=== PATIENT | female | born 1945 | race Caucasian/White ===

== ENCOUNTER 2022-08-02 13:21 | Observation (INO) | payer OTHER, MEDICARE ==
--- OUTSIDE RECORDS SUMMARY | 2022-08-02 13:26 | XMS REPORT | Continuity of Care Document ---
:1945 Author Organization [facility] t Address [address] [facility] [address] [place] [id number] Care Team Providers Name Role Phone Kevyn Severino Primary Care Physician Oleksandr Cardenas Attending Clinician Unavailable Ge Parks Attending Clinician Unavailable Najma Attending Clinician Unavailable Jp Whitney Attending Clinician Benoit Brown Attending Clinician [phone] Heidy Attending Clinician Unavailable Milad Schilling Attending Clinician Lab, Adc Fam Pob I Attending Clinician Unavailable Tiff Newsome Attending Clinician Eyad Parish MD Attending Clinician [phone] Physician, No Primary or Family Admitting Clinician UnavailGe Valadez Admitting Clinician Unavailable Najma Admitting Clinician Unavailable Heidy Admitting Clinician Unavailable Payers Payer Name Policy Type Policy Number Effective Date Expiration Date S ource MEDICARE B-TX: [id number] 2008 NOVITAS Dazo 00:00:00 [facility] [id number] 2021 OPTIONS (MEDICARE 00:00:00 SUPPLEMENT) EPISODE SOLUTIONS [id number] Problems Condition Condition Condition Status Onset Resolution Last Treating Co mments Source Name Details Category Date Date Treatment Clinician Date History of History of Problem Active A zalea total Total 5-05 [facility] arthroplas Arthroplas 00:00: di c ty of ty of 00 Sports right Right Medicin shoulder Shoulder e History of History of Problem Active A zalea total Total 3-31 [facility] arthroplas Arthroplas 00:00: di c ty of ty of 00 Sports right Right Medicin shoulder Shoulder e joint Joint Pain of Pain of Problem Active Katty right Right 1-16 [facility] shoulder Shoulder 00:00: dic joint Joint 00 Sports Medicin e Osteoarthr Osteoarthr Problem Active A zalea itis of itis of 4-06 [facility] right Right 00:00: dic glenohumer Glenohumer 00 Sp orts al joint al Joint Medici n e 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 A zalea oral oral 2-07 [facility] osteoarthr Osteoarthr 00:00: di c itis itis 00 Sports Medicin e 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 00:00: dic 00 Sports Medicin e 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 Osteoarthr 4-13 Or thope itis itis 00:00: dic 00 Sports Medicin e 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 00:00: dic of right of Right 00 Sports wrist Wrist Medicin e Knee joint Knee Joint Problem Active A zalea effusion Effusion 4-09 Orthop e 00:00: dic 00 Sports Medicin e Acute Acute Problem Active Katty postoperat Postoperat 2-12 Or thope david pain david Pain 00:00: dic 00 Sports Medicin e 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 2-12 Or thope knee joint Knee Joint 00:00: di c 00 Sports Medicin e Left knee Left knee Disease Active Uni vers pain pain 4-04 ity of 00:00: [place] [address] Medical Branch No known No known Disease [facility] problems problems of Medicin e Allergies, Adverse Reactions, Alerts Allergy Allergy Status Severity Reaction(s) Onset Inactive Treating Comm ents Source Name Type Date Date Clinician No Known DA Active [facility] Allergie 04-27 [place] [facility] 00:[facility] hydroxyz DA Active [facility] ine 4-13 Clear 00:00: [place] 00 [facility] hydroxyz DA Active MO restless [facility] ine legs 4-13 Clear 00:00: [place] 00 [facility] hydroxyz DA Active [facility] ine 03-07 [place] 00:00: Orthope 00 dic [facility]osp[facility] hydroxyz DA Active MO restless [facility] ine legs 08 [place] 00:00: Orthope 00 dic Hospita l CODEINE DRUG Active N/V Univers INGREDI 4-04 ity of 00:00: [place] [address] Medical Branch Codeine Propensi Active Nausea Univers ty to and/or 4-04 ity of adverse Vomiting 00:00: [place] reaction Medical s Branch Social History Social Habit Start Date Stop Date Quantity Comments Source Exposure to Yes [facility]-CoV-2 [place] [facility] (event) Branch History [facility] ge of Alcohol Std Medicine Drinks History [facility] of Alcohol Binge Medicine Sex Assigned At [place] [facility] Tobacco use and 2019-10-15 2019-10-15 Former user [facility] Raji helms of exposure 00:00:00 00:00:00 Medicine Alcohol intake 2019-10-15 2019-10-15 Current drinker [facility] 00:00:00 00:00:00 of alcohol Medicine (finding) History [facility] 2019-09-24 2019-09-24 4 [facility] ge of Alcohol Frequency 00:00:00 00:00:00 Medicin e Smoking Status Start Date Stop Date Source Former smoker 2019-10-15 00:00:00 2019-10-15 00:00:00 [facility] scooter of Medicine Never smoked tobacco [facility] Medications Ordered Filled Start Stop Current Ordering Indication Dosage Frequency Signature Comments Components Source Medication Medication Date Date Medication? Clinician (SIG) Name Name diclofenac Yes [id number] TAKE ONE Univers 75 mg EC 7-22 TABLET BY ity of tablet 00:00: MOUTH [place] 00 TWICE A Medical DAY WITH Branch FOOD Juan Manuel Zambrano No Juan Manuel Kumar ea Silver Silver 4-13 Silver [facility] tablet RX tablet RX 00:00: tablet RX dic by other MD by other 00 by other Sports MD Flores e fenofibrate fenofibrate No fenofibrat Katty nanocrystal nanocrystal 4-13 e O rthope lized 145 lized 145 00:00: nanocrysta dic mg tablet mg tablet 00 llized 145 Sports RX by other RX by other mg tablet Sandra PIERRE MD RX by e other MD Juan Manuel Zambrano No Juan Manuel Kumar ea Silver Silver 4-13 Silver [facility] tablet RX tablet RX 00:00: tablet RX dic by other MD by other MD 00 by other Sports MD Sandra espinoza fenofibrate fenofibrate No fenofibrat Katty nanocrystal nanocrystal 4-13 e O rthope lized 145 lized 145 00:00: nanocrysta dic mg tablet mg tablet 00 llized 145 Sports RX by other RX by other mg tablet Sandra PIERRE MD RX by e other MD Juan Manuel Zambrano No Juan Manuel Kumar ea Silver Silver 4-13 Silver [facility] tablet RX tablet RX 00:00: tablet RX dic by other MD by other MD 00 by other Sports MD Sandra espinoza fenofibrate fenofibrate No fenofibrat Katty nanocrystal nanocrystal 4-13 e O rthope lized 145 lized 145 00:00: nanocrysta dic mg tablet mg tablet 00 llized 145 Sports RX by other RX by other mg tablet Sandra PIERRE MD RX by e other MD Juan Manuel Zambrano No Juan Manuel Kumar ea Silver Silver 4-13 Silver [facility] tablet RX tablet RX 00:00: tablet RX dic by other MD by other 00 by other Sports MD Flores e fenofibrate fenofibrate No fenofibrat Katty nanocrystal nanocrystal 4-13 e O rthope lized 145 lized 145 00:00: nanocrysta dic mg tablet mg tablet 00 llized 145 Sports RX by other RX by other mg tablet Sandra PIERRE MD RX by e other MD daxa patevastaoli No atorvastat Katty n 40 mg n 40 mg 4-13 in 40 mg Ortho pe tablet RX tablet RX 00:00: tablet RX dic by other MD by other MD 00 by other Sports MD Sandra espinoza Centrum Centrum No Centrum Azal ea Silver Silver 4-13 Silver [facility] tablet RX tablet RX 00:00: tablet RX dic by other MD by other 00 by other Sports MD Sandra espinoza diclofenac diclofenac No diclofenac Katty sodium 75 sodium 75 4-13 sodium 75 Orthope mg mg 00:00: mg dic tablet,pepe tablet,pepe 00 tablet,del Sports yed release yed release ayed M edicin RX by other RX by other release RX e MD by other famotidine famotidine No famotidine Katty 20 mg 20 mg -13 20 mg Orth[facility] tablet RX tablet RX 00:00: tablet RX dic by other MD by other MD 00 by other Sports MD Sandra espinoza fenofibrate fenofibrate No fenofibrat Katty nanocrystal nanocrystal - e O rthope lized 145 lized 145 00:00: nanocrysta dic mg tablet mg tablet 00 llized 145 Sports RX by other RX by other mg tablet Sandra PIERRE MD RX by e other levothyroxi levothyroxi No levothyrox Katty ne 50 mcg ne 50 mcg -13 ine 50 mcg Orth[facility] tablet RX tablet RX 00:00: tablet RX dic by other MD by other 00 by other Sports MD Sandra espinoza metoprolol metoprolol No metoprolol Katty succinate succinate 4-13 succinate Orth[facility] ER 50 mg ER 50 mg 00:00: ER 50 mg d ic tablet,exte tablet,exte 00 tablet,ext Sports nded nded ended Medicin release 24 release 24 release 24 e hr RX by hr RX by hr RX by other MD josee tripp MD Premarin Premarin No Premarin A zalea 0.625 mg 0.625 mg 4-13 0.625 mg Ort hope tablet RX tablet RX 00:00: tablet RX dic by other MD by other 00 by other Sports MD Sandra espinoza triamterene triamterene No triamteren Katty 37.5 37.5 -13 e 37.5 Orthope mg-hydrochl mg-hydrochl 00:00: mg-hydroch dic orothiazide orothiazide 00 lorothiazi Sports 25 mg 25 mg de 25 mg Medicin capsule RX capsule RX capsule RX e by other MD by other MD by other MD Centrum Centrum No Centrum Azal ea Silver Silver 06-10 Silver [facility] tablet RX tablet RX 00:00: tablet RX dic by other MD by other 00 by other Sports MD Sandra espinoza fenofibrate fenofibrate No fenofibrat Katty nanocrystal nanocrystal 06-10 e O rthope lized 145 lized 145 00:00: nanocrysta dic mg tablet mg tablet 00 llized 145 Sports RX by other RX by other mg tablet Sandra PIERRE MD RX by e other diclofenac Yes [id number] TAKE ONE Univers 75 mg EC 6- 9100 TABLET BY ity of tablet 00:00: MOUTH 00 TWICE A Medical DAY WITH Branch FOOD diclofenac Yes [id number] TAKE ONE Univers 75 mg EC 6-03 9100 TABLET BY ity of tablet 00:00: MOUTH 00 TWICE A Medical DAY WITH Branch FOOD BYSTOLIC Yes Jose David MG TABS 07-06 College 00:00: of 00 Medicin e atorvastati Yes Jose David n (LIPITOR) 07-06 College 40 MG 00:00: of tablet Medicin e BYSTOLIC Yes [place] MG TABS 07-06 College 00:00: of 00 Medicin e atorvastati Yes Jose David n (LIPITOR) 07-06 College 40 MG 00:00: of tablet Medicin e BYSTOLIC Yes Jose David MG TABS 07-06 College 00:00: of 00 Medicin e atorvastati Yes Jose David n (LIPITOR) 07-06 College 40 MG 00:00: of tablet Medicin e lorazepam Yes Jose David (ATIVAN) 4-29 College 0.5 MG 00:00: of tablet 00 Medicin e lorazepam 2019-0 Yes [place] (ATIVAN) 4-29 College 0.5 MG 00:00: of tablet 00 Medicin e lorazepam 2019-0 Yes Jose David (ATIVAN) 4-29 College 0.5 MG 00:00: of tablet 00 Medicin e diclofenac 2019-0 Yes TAKE ONE Uni vers 75 mg EC 4-10 TABLET BY ity of tablet 00:00: MOUTH [place] 00 TWICE A Medical DAY WITH Branch FOOD diclofenac 2019-0 Yes [place] (VOLTAREN) 4-10 College 75 MG EC 00:00: of tablet 00 Medicin e amoxicillin 2019-0 Yes Jose David (AMOXIL) 4-10 College 500 mg 00:00: of capsule 00 Medicin e diclofenac 2019-0 Yes [place] (VOLTAREN) 4-10 College 75 MG EC 00:00: of tablet 00 Medicin e amoxicillin 2019-0 Yes [place] (AMOXIL) 4-10 College 500 mg 00:00: of capsule 00 Medicin e diclofenac 2019-0 Yes [place] (VOLTAREN) 4-10 College 75 MG EC 00:00: of tablet 00 Medicin e amoxicillin 2019-0 Yes Jose David (AMOXIL) 4-10 College 500 mg 00:00: of capsule 00 Medicin e diclofenac 2019-0 2021- No TAKE ONE Un gary 75 mg EC 4-10 - TABLET BY ity o f tablet 00:00: 00:00 MOUTH [place] 00 :00 TWICE A Medical DAY WITH Branch FOOD diazepam 2019-0 Yes Jose David (VALIUM) 5 4-09 College MG tablet 00:00: of 00 Medicin e diazepam 2019-0 Yes [place] (VALIUM) 5 4-09 College MG tablet 00:00: of 00 Medicin e diazepam 2019-0 Yes Jose David (VALIUM) 5 4-09 College MG tablet 00:00: of 00 Medicin e famotidine 2019-0 Yes Jose David (PEPCID) 20 3-27 College MG tablet 00:00: of 00 Medicin e eszopiclone 2019-0 Yes [place] (LUNESTA) 2 3-27 College MG TABS 00:00: of 00 Medicin e famotidine 2019-0 Yes [place] (PEPCID) 20 3-27 College MG tablet 00:00: of 00 Medicin e eszopiclone 2018- Yes [place] (LUNESTA) 2 3-27 College MG TABS 00:00: of 00 Medicin e famotidine 2019- Yes Jose David (PEPCID) 20 3-27 College MG tablet 00:00: of 00 Medicin e eszopiclone 2018- Yes [place] (LUNESTA) 2 3-27 College MG TABS 00:00: of 00 Medicin e tramadol Yes [place] (ULTRAM) 50 2-20 College MG tablet 00:00: of 00 Medicin e tramadol 2019 Yes Jose David (ULTRAM) 50 2-20 College MG tablet 00:00: of 00 Medicin e tramadol 2019- Yes [place] (ULTRAM) 50 2-20 College MG tablet 00:00: of 00 Medicin e lorazepam lorazepam 2017-02 No lorazepam Katty 0.5 mg 0.5 mg 2-18 0.5 mg [facility] tablet RX tablet RX 00:00: tablet RX dic by other MD by other 00 by other Sports MD Sandra Hernandez 2017-02 No Bystolic Katty mg tablet mg tablet 2-18 10 mg Orth ope RX by other RX by other 00:00: tablet RX dic MD PIERRE 00 by other Sports MD Sandra espinoza Fiber Fiber 2017-02 No Fiber Katty (calcium (calcium 2-18 (calcium [facility] polycarboph polycarboph 00:00: polycarbop dic il) 625 mg il) 625 mg 00 hil) 625 Sports tablet RX tablet RX mg tablet Medicin by other MD by other RX by e josee PIERRE Livalo 4 mg Livalo 4 mg 2017-02 No Livalo 4 Katty tablet RX tablet RX 2-18 mg tablet Orthope by other by josee PIERRE 00:00: RX by dic 00 other MD Tremayne espinoza lorazepam lorazepam 2017-02 No lorazepam Katty 0.5 mg 0.5 mg 2-18 0.5 mg Orth[facility] tablet RX tablet RX 00:00: tablet RX dic by other MD by josee PIERRE 00 by other Sports MD Sandra Hernandez 2017-02 No Bystolic Katty mg tablet mg tablet 2-18 10 mg Orth ope RX by other RX by other 00:00: tablet RX dic MD PIERRE 00 by other Sports MD Maddison Villalba 2017-02 No Fiber Katty (calcium (calcium 2-18 (calcium [facility] polycarboph polycarboph 00:00: polycarbop dic il) 625 mg il) 625 mg 00 hil) 625 Sports tablet RX tablet RX mg tablet Medicin by other MD by other RX by e other Livalo 4 mg Livalo 4 mg 2017-02 No Livalo 4 Katty tablet RX tablet RX 2-18 mg tablet Orthope by other MD by other 00:00: RX by dic 00 other MD Tremayne espinoza lorazepam lorazepam 2017-02 No lorazepam Katty 0.5 mg 0.5 mg 2-18 0.5 mg Orth[facility] tablet RX tablet RX 00:00: tablet RX dic by other MD by other 00 by other Sports MD Sandra espinoza 2017-02 No Bystolic Katty mg tablet mg tablet 2-18 10 mg Orth ope RX by other RX by other 00:00: tablet RX dic MD PIERRE 00 by other Sports MD Sandra espinoza Fiber Fiber 2017-02 No Fiber Katty (calcium (calcium 2-18 (calcium [facility] polycarboph polycarboph 00:00: polycarbop dic il) 625 mg il) 625 mg 00 hil) 625 Sports tablet RX tablet RX mg tablet Medicin by other MD by other RX by e other Livalo 4 mg Livalo 4 mg 2017-02 No Livalo 4 Katty tablet RX tablet RX 2-18 mg tablet Orthope by other MD by other 00:00: RX by dic 00 other MD Tremayne espinoza lorazepam lorazepam 2017-02 No lorazepam Katty 0.5 mg 0.5 mg 2-18 0.5 mg Orth[facility] tablet RX tablet RX 00:00: tablet RX dic by other MD by other 00 by other Sports MD Sandra espinoza 2017-02 No Bystolic Katty mg tablet mg tablet 2-18 10 mg Orth ope RX by other RX by other 00:00: tablet RX dic MD PIERRE 00 by other Sports MD Sandra espinoza Fiber Fiber 2017-02 No Fiber Katty (calcium (calcium 2-18 (calcium [facility] polycarboph polycarboph 00:00: polycarbop dic il) 625 mg il) 625 mg 00 hil) 625 Sports tablet RX tablet RX mg tablet Medicin by other MD by other RX by e josee PIERRE Livalo 4 mg Livalo 4 mg 2017-02 No Livalo 4 Katty tablet RX tablet RX 2-18 mg tablet Orthope by other MD by other 00:00: RX by dic 00 other MD Tremayne espinoza lorazepam lorazepam 2017-02 No lorazepam Katty 0.5 mg 0.5 mg 2-18 0.5 mg [facility] tablet RX tablet RX 00:00: tablet RX dic by other MD by other 00 by other Sports MD Sandra Hernandez 2017-02 No Bystolic Katty mg tablet mg tablet 2-18 10 mg Orth ope RX by other RX by other 00:00: tablet RX dic MD PIERRE 00 by other Sports MD Sandra espinoza Fiber Fiber 2017-02 No Fiber Katty (calcium (calcium 2-18 (calcium [facility] polycarboph polycarboph 00:00: polycarbop dic il) 625 mg il) 625 mg 00 hil) 625 Sports tablet RX tablet RX mg tablet Medicin by other MD by other MD RX by e other levothyroxi levothyroxi 2017-02 No levothyrox Katty ne 25 mcg ne 25 mcg 2-18 ine 25 mcg [facility] tablet RX tablet RX 00:00: tablet RX dic by other MD by other 00 by other Sports MD Sandra espinoza Livalo 4 mg Livalo 4 mg 2017-02 No Livalo 4 Katty tablet RX tablet RX 2-18 mg tablet Orthope by other MD by other MD 00:00: RX by dic 00 other MD Tremayne espinoza lorazepam lorazepam 2017-02 No lorazepam Katty 0.5 mg 0.5 mg 2-18 0.5 mg Orthope tablet RX tablet RX 00:00: tablet RX dic by other MD by other 00 by other Sports MD Sandra Hernandez 2017-02 No Bystolic Katty mg tablet mg tablet 2-18 10 mg Orth ope RX by other RX by other 00:00: tablet RX dic MD PIERRE 00 by other Sports MD Sandra espinoza Fiber Fiber 2017-02 No Fiber Katty (calcium (calcium 2-18 (calcium [facility] polycarboph polycarboph 00:00: polycarbop dic il) 625 mg il) 625 mg 00 hil) 625 Sports tablet RX tablet RX mg tablet Medicin by other MD by other RX by e other Livalo 4 mg Livalo 4 mg 2018- No Livalo 4 Katty tablet RX tablet RX 2-18 mg tablet Orthope by other MD by other 00:00: RX by dic 00 other Sports Medicin e lorazepam 1 lorazepam 1 No lorazepam Katty mg tablet mg tablet 1 mg Ortho pe tablet dic Sports Medicin e meloxicam meloxicam No meloxicam Katty 15 mg 15 mg 15 mg Orthope tablet tablet tablet dic Sports Medicin e metoprolol metoprolol No metoprolol Katty succinate succinate succinate Orthope ER 50 mg ER 50 mg ER 50 mg dic tablet,exte tablet,exte tablet,ext Sports nded nded ended Medicin release 24 release 24 release 24 e hr RX by hr RX by hr RX by other MD josee tripp MD montelukast montelukast No montelukas Katty 10 mg 10 mg t 10 mg Orthope tablet tablet tablet dic Sports Medicin e prednisone prednisone No prednisone Katty 10 mg 10 mg 10 mg Orth[facility] tablet tablet tablet dic Sports Medicin e Premarin Premarin No Premarin Aza dharmesh 0.625 mg 0.625 mg 0.625 mg Ort hope tablet RX tablet RX tablet RX dic by other MD by other MD by other Sports MD Medicin e rosuvastati rosuvastati No rosuvastat Katty n 10 mg n 10 mg in 10 mg Ortho pe tablet tablet tablet dic Sports Medicin e tramadol tramadol No tramadol Aza dharmesh 37.5 37.5 37.5 Orthope mg-acetamin mg-acetamin mg-acetami dic ophen 325 ophen 325 nophen 325 Sports mg tablet mg tablet mg tablet Medicin Take 1 Take 1 Take 1 e tablet tablet tablet every 4-6 every 4-6 every 4-6 hours by hours by hours by oral route oral route oral route as needed. as needed. as needed. tramadol 50 tramadol 50 No tramadol Katty mg tablet mg tablet 50 mg Orth ope tablet dic Sports Medicin e triamterene triamterene No triamteren Katty 37.5 37.5 e 37.5 Orthope mg-hydrochl mg-hydrochl mg-hydroch dic orothiazide orothiazide lorothiazi Sports 25 mg 25 mg de 25 mg Medicin capsule RX capsule RX capsule RX e by other MD by other MD by other MD amoxicillin amoxicillin No amoxicilli Katty 500 mg 500 mg n 500 mg Orth[facility] capsule capsule capsule dic Sports Medicin e aspirin 81 aspirin 81 No aspirin 81 Katty mg chewable mg chewable mg O rthope tablet one tablet one chewable dic tablet by tablet by tablet one Sports mouth twice mouth twice tablet by Medicin a day for 4 a day for 4 mouth e weeks after weeks after twice a surgery surgery day for 4 weeks after surgery atorvastati atorvastati No atorvastat Katty n 40 mg n 40 mg in 40 mg Ortho pe tablet RX tablet RX tablet RX dic by other MD by other MD by other Sports MD Medicin e Augmentin Augmentin No 1 Q12H Augmentin Katty 500 mg-125 500 mg-125 500 mg-125 Orthope mg tablet mg tablet mg tablet dic Take 1 Take 1 Take 1 Sports tablet tablet tablet Medicin every 12 every 12 every 12 e hours by hours by hours by oral route oral route oral route as as as directed. directed. directed. azithromyci azithromyci No azithromyc Katty n 250 mg n 250 mg in 250 mg Or thope tablet tablet tablet dic Sports Medicin e celecoxib celecoxib No celecoxib Katty 200 mg 200 mg 200 mg Orth[facility] capsule capsule capsule dic Take one Take one Take one Spo rts caplet by caplet by caplet by Medicin mouth every mouth every mouth e 12 hours 12 hours every 12 for one for one hours for month. (For month. (For one month. after after (For after surgery use surgery use surgery only) only) use only) cephalexin cephalexin No cephalexin Katty 500 mg 500 mg 500 mg [facility] capsule capsule capsule dic Sports Medicin e diclofenac diclofenac No diclofenac Katty sodium 75 sodium 75 sodium 75 [facility] mg mg mg dic tablet,pepe tablet,peep tablet,del Sports yed release yed release ayed M edicin RX by other RX by other release RX e MD by other MD ezetimibe ezetimibe No ezetimibe Katty 10 mg 10 mg 10 mg [facility] tablet tablet tablet dic Sports Medicin e famotidine famotidine No famotidine Katty 20 mg 20 mg 20 mg [facility] tablet RX tablet RX tablet RX dic by other MD by other MD by other Sports MD Sandra espinoza hydrocodone hydrocodone No hydrocodon Katty 10 10 e 10 [facility] mg-acetamin mg-acetamin mg-acetami dic ophen 325 ophen 325 nophen 325 Sports mg tablet mg tablet mg tablet Medicin Take 1 Take 1 Take 1 e tablet tablet tablet every 6 every 6 every 6 hours by hours by hours by oral route oral route oral route as needed as needed as needed for 7 days. for 7 days. for 7 days. levothyroxi levothyroxi No levothyrox Katty ne 25 mcg ne 25 mcg ine 25 mcg [facility] tablet RX tablet RX tablet RX dic by other MD by other by other Sports MD Sandra espinoza levothyroxi levothyroxi No levothyrox Katty ne 50 mcg ne 50 mcg ine 50 mcg [facility] tablet RX tablet RX tablet RX dic by other MD by other by other Sports MD Sandra espinoza lorazepam 1 lorazepam 1 No lorazepam Katty mg tablet mg tablet 1 mg Ortho pe tablet dic Sports Medicin e meloxicam meloxicam No meloxicam Katty 15 mg 15 mg 15 mg [facility] tablet tablet tablet dic Sports Medicin e metoprolol metoprolol No metoprolol Katty succinate succinate succinate [facility] ER 50 mg ER 50 mg ER 50 mg dic tablet,exte tablet,exte tablet,ext Sports nded nded ended Medicin release 24 release 24 release 24 e hr RX by hr RX by hr RX by other other other montelukast montelukast No montelukas Katty 10 mg 10 mg t 10 mg [facility] tablet tablet tablet dic Sports Medicin e prednisone prednisone No prednisone Katty 10 mg 10 mg 10 mg [facility] tablet tablet tablet dic Sports Medicin e prednisone prednisone No prednisone Katty 20 mg 20 mg 20 mg [facility] tablet tablet tablet dic Sports Medicin e Premarin Premarin No Premarin Aza dharmesh 0.625 mg 0.625 mg 0.625 mg [facility] tablet RX tablet RX tablet RX dic by other MD by other MD by other Sports Medicigor espinoza rosuvastati rosuvastati No rosuvastat Katty n 10 mg n 10 mg in 10 mg Ortho pe tablet tablet tablet dic Sports Medicin e tramadol tramadol No tramadol Aza dharmesh 37.5 37.5 37.5 [facility] mg-acetamin mg-acetamin mg-acetami dic ophen 325 ophen 325 nophen 325 Sports mg tablet mg tablet mg tablet Medicin Take 1 Take 1 Take 1 e tablet tablet tablet every 4-6 every 4-6 every 4-6 hours by hours by hours by oral route oral route oral route as needed. as needed. as needed. tramadol 50 tramadol 50 No tramadol Katty mg tablet mg tablet 50 mg Orth ope tablet dic Sports Medicin e triamterene triamterene No triamteren Katty 37.5 37.5 e 37.5 [facility] mg-hydrochl mg-hydrochl mg-hydroch dic orothiazide orothiazide lorothiazi Sports 25 mg 25 mg de 25 mg Medicin capsule RX capsule RX capsule RX e by other MD by other MD by other MD amoxicillin amoxicillin No amoxicilli Katty 500 mg 500 mg n 500 mg [facility] capsule capsule capsule dic Sports Medicin e aspirin 81 aspirin 81 No aspirin 81 Katty mg chewable mg chewable mg O rthope tablet one tablet one chewable dic tablet by tablet by tablet one Sports mouth twice mouth twice tablet by Medicin a day for 4 a day for 4 mouth e weeks after weeks after twice a surgery surgery day for 4 weeks after surgery atorvastati atorvastati No atorvastat Katty n 40 mg n 40 mg in 40 mg Ortho pe tablet RX tablet RX tablet RX dic by other MD by other MD by other Sports MD Medicin e Augmentin Augmentin No 1 Q12H Augmentin Katty 500 mg-125 500 mg-125 500 mg-125 [facility] mg tablet mg tablet mg tablet dic Take 1 Take 1 Take 1 Sports tablet tablet tablet Medicin every 12 every 12 every 12 e hours by hours by hours by oral route oral route oral route as as as directed. directed. directed. azithromyci azithromyci No azithromyc Katty n 250 mg n 250 mg in 250 mg Or thope tablet tablet tablet dic Sports Medicin e celecoxib celecoxib No celecoxib Katty 200 mg 200 mg 200 mg [facility] capsule capsule capsule dic Take one Take one Take one Spo rts caplet by caplet by caplet by Medicin mouth every mouth every mouth e 12 hours 12 hours every 12 for one for one hours for month. (For month. (For one month. after after (For after surgery use surgery use surgery only) only) use only) cephalexin cephalexin No cephalexin Katty 500 mg 500 mg 500 mg [facility] capsule capsule capsule dic Sports Medicin e diclofenac diclofenac No diclofenac Katty sodium 75 sodium 75 sodium 75 [facility] mg mg mg dic tablet,pepe tablet,pepe tablet,del Sports yed release yed release ayed M edicin RX by other RX by other release RX e MD by other MD ezetimibe ezetimibe No ezetimibe Katty 10 mg 10 mg 10 mg [facility] tablet tablet tablet dic Sports Medicin e famotidine famotidine No famotidine Katty 20 mg 20 mg 20 mg [facility] tablet RX tablet RX tablet RX dic by other MD by other MD by other Sports Medicigor espinoza hydrocodone hydrocodone No hydrocodon Katty 10 10 e 10 [facility] mg-acetamin mg-acetamin mg-acetami dic ophen 325 ophen 325 nophen 325 Sports mg tablet mg tablet mg tablet Medicin Take 1 Take 1 Take 1 e tablet tablet tablet every 6 every 6 every 6 hours by hours by hours by oral route oral route oral route as needed as needed as needed for 7 days. for 7 days. for 7 days. levothyroxi levothyroxi No levothyrox Katty ne 25 mcg ne 25 mcg ine 25 mcg [facility] tablet RX tablet RX tablet RX dic by other MD by other MD by other Sports Medicin e levothyroxi levothyroxi No levothyrox Katty ne 50 mcg ne 50 mcg ine 50 mcg [facility] tablet RX tablet RX tablet RX dic by other MD by other MD by other Sports Medicin e lorazepam 1 lorazepam 1 No lorazepam Katty mg tablet mg tablet 1 mg Orth[facility] pe tablet dic Sports Medicin e meloxicam meloxicam No meloxicam Katty 15 mg 15 mg 15 mg [facility] tablet tablet tablet dic Sports Medicin e metoprolol metoprolol No metoprolol Katty succinate succinate succinate [facility] ER 50 mg ER 50 mg ER 50 mg dic tablet,exte tablet,exte tablet,ext Sports nded nded ended Medicin release 24 release 24 release 24 e hr RX by hr RX by hr RX by other MD other other montelukast montelukast No montelukas Katty 10 mg 10 mg t 10 mg [facility] tablet tablet tablet dic Sports Medicin e prednisone prednisone No prednisone Katty 10 mg 10 mg 10 mg [facility] tablet tablet tablet dic Sports Medicin e prednisone prednisone No prednisone Katty 20 mg 20 mg 20 mg [facility] tablet tablet tablet dic Sports Medicin e Premarin Premarin No Premarin Aza dharmesh 0.625 mg 0.625 mg 0.625 mg Ort hope tablet RX tablet RX tablet RX dic by other MD by other MD by other Sports Medicin e rosuvastati rosuvastati No rosuvastat Katty n 10 mg n 10 mg in 10 mg Orth[facility] pe tablet tablet tablet dic Sports Medicin e tramadol tramadol No tramadol Aza dharmesh 37.5 37.5 37.5 [facility] mg-acetamin mg-acetamin mg-acetami dic ophen 325 ophen 325 nophen 325 Sports mg tablet mg tablet mg tablet Medicin Take 1 Take 1 Take 1 e tablet tablet tablet every 4-6 every 4-6 every 4-6 hours by hours by hours by oral route oral route oral route as needed. as needed. as needed. tramadol 50 tramadol 50 No tramadol Katty mg tablet mg tablet 50 mg Orth ope tablet dic Sports Medicin e triamterene triamterene No triamteren Katty 37.5 37.5 e 37.5 [facility] mg-hydrochl mg-hydrochl mg-hydroch dic orothiazide orothiazide lorothiazi Sports 25 mg 25 mg de 25 mg Medicin capsule RX capsule RX capsule RX e by other MD by other MD by other MD amoxicillin amoxicillin No amoxicilli Katty 500 mg 500 mg n 500 mg [facility] capsule capsule capsule dic Sports Medicin e aspirin 81 aspirin 81 No aspirin 81 Katty mg chewable mg chewable mg O r[facility]ope tablet one tablet one chewable dic tablet by tablet by tablet one Sports mouth twice mouth twice tablet by Medicin a day for 4 a day for 4 mouth e weeks after weeks after twice a surgery surgery day for 4 weeks after surgery atorvastati atorvastati No atorvastat Katty n 40 mg n 40 mg in 40 mg [facility] pe tablet RX tablet RX tablet RX dic by other MD by other MD by other Sports Medicin e Augmentin Augmentin No 1 Q12H Augmentin Katty 500 mg-125 500 mg-125 500 mg-125 [facility] mg tablet mg tablet mg tablet dic Take 1 Take 1 Take 1 Sports tablet tablet tablet Medicin every 12 every 12 every 12 e hours by hours by hours by oral route oral route oral route as as as directed. directed. directed. azithromyci azithromyci No azithromyc Katty n 250 mg n 250 mg in 250 mg Or thope tablet tablet tablet dic Sports Medicin e celecoxib celecoxib No celecoxib Katty 200 mg 200 mg 200 mg [facility] capsule capsule capsule dic Take one Take one Take one Spo rts caplet by caplet by caplet by Medicin mouth every mouth every mouth e 12 hours 12 hours every 12 for one for one hours for month. (For month. (For one month. after after (For after surgery use surgery use surgery only) only) use only) cephalexin cephalexin No cephalexin Katty 500 mg 500 mg 500 mg [facility] capsule capsule capsule dic Sports Medicin e diclofenac diclofenac No diclofenac Katty sodium 75 sodium 75 sodium 75 [facility] mg mg mg dic tablet,pepe tablet,pepe tablet,del Sports yed release yed release ayed M edicin RX by other RX by other release RX e MD by other MD ezetimibe ezetimibe No ezetimibe Katty 10 mg 10 mg 10 mg [facility] tablet tablet tablet dic Sports Medicin e famotidine famotidine No famotidine Katty 20 mg 20 mg 20 mg [facility] tablet RX tablet RX tablet RX dic by other MD by other MD by other Sports Medicin e hydrocodone hydrocodone No hydrocodon Katty 10 10 e 10 [facility] mg-acetamin mg-acetamin mg-acetami dic ophen 325 ophen 325 nophen 325 Sports mg tablet mg tablet mg tablet Medicin Take 1 Take 1 Take 1 e tablet tablet tablet every 6 every 6 every 6 hours by hours by hours by oral route oral route oral route as needed as needed as needed for 7 days. for 7 days. for 7 days. levothyroxi levothyroxi No levothyrox Katty ne 25 mcg ne 25 mcg ine 25 mcg [facility] tablet RX tablet RX tablet RX dic by other MD by other MD by other Sports Medicin e levothyroxi levothyroxi No levothyrox Katty ne 50 mcg ne 50 mcg ine 50 mcg [facility] tablet RX tablet RX tablet RX dic by other MD by other MD by other Sports Medicin e lorazepam 1 lorazepam 1 No lorazepam Katty mg tablet mg tablet 1 mg Orth[facility] pe tablet dic Sports Medicin e meloxicam meloxicam No meloxicam Katty 15 mg 15 mg 15 mg [facility] tablet tablet tablet dic Sports Medicin e metoprolol metoprolol No metoprolol Katty succinate succinate succinate [facility] ER 50 mg ER 50 mg ER 50 mg dic tablet,exte tablet,exte tablet,ext Sports nded nded ended Medicin release 24 release 24 release 24 e hr RX by hr RX by hr RX by other other other montelukast montelukast No montelukas Katty 10 mg 10 mg t 10 mg [facility] tablet tablet tablet dic Sports Medicin e prednisone prednisone No prednisone Katty 10 mg 10 mg 10 mg [facility] tablet tablet tablet dic Sports Medicin e prednisone prednisone No prednisone Katty 20 mg 20 mg 20 mg [facility] tablet tablet tablet dic Sports Medicin e Premarin Premarin No Premarin Aza dharmesh 0.625 mg 0.625 mg 0.625 mg Ort hope tablet RX tablet RX tablet RX dic by other MD by other MD by other Sports Medicin e rosuvastati rosuvastati No rosuvastat Katty n 10 mg n 10 mg in 10 mg Orth[facility] pe tablet tablet tablet dic Sports Medicin e tramadol tramadol No tramadol Aza dharmesh 37.5 37.5 37.5 [facility] mg-acetamin mg-acetamin mg-acetami dic ophen 325 ophen 325 nophen 325 Sports mg tablet mg tablet mg tablet Medicin Take 1 Take 1 Take 1 e tablet tablet tablet every 4-6 every 4-6 every 4-6 hours by hours by hours by oral route oral route oral route as needed. as needed. as needed. tramadol 50 tramadol 50 No tramadol Katty mg tablet mg tablet 50 mg Orth ope tablet dic Sports Medicin e triamterene triamterene No triamteren Katty 37.5 37.5 e 37.5 [facility] mg-hydrochl mg-hydrochl mg-hydroch dic orothiazide orothiazide lorothiazi Sports 25 mg 25 mg de 25 mg Medicin capsule RX capsule RX capsule RX e by other MD by other MD by other MD amoxicillin amoxicillin No amoxicilli Katty 500 mg 500 mg n 500 mg [facility] capsule capsule capsule dic Sports Medicin e aspirin 81 aspirin 81 No aspirin 81 Katty mg chewable mg chewable mg O r[facility]ope tablet one tablet one chewable dic tablet by tablet by tablet one Sports mouth twice mouth twice tablet by Medicin a day for 4 a day for 4 mouth e weeks after weeks after twice a surgery surgery day for 4 weeks after surgery atorvastati atorvastati No atorvastat Katty n 40 mg n 40 mg in 40 mg [facility] pe tablet RX tablet RX tablet RX dic by other MD by other by other Sports Medicigor espinoza celecoxib celecoxib No celecoxib Katty 200 mg 200 mg 200 mg [facility] capsule capsule capsule dic Take one Take one Take one Spo rts caplet by caplet by caplet by Medicin mouth every mouth every mouth e 12 hours 12 hours every 12 for one for one hours for month. (For month. (For one month. after after (For after surgery use surgery use surgery only) only) use only) cephalexin cephalexin No cephalexin Katty 500 mg 500 mg 500 mg [facility] capsule capsule capsule dic [facility] Medic[facility] e diclofenac diclofenac No diclofenac Katty sodium 75 sodium 75 sodium 75 [facility] mg mg mg dic tablet,pepe tablet,pepe tablet,del Sports yed release yed release ayed M edicin RX by other RX by other release RX e MD PIERRE by other ezetimibe ezetimibe No ezetimibe Katty 10 mg 10 mg 10 mg [facility] tablet tablet tablet dic Sports Medicin e famotidine famotidine No famotidine Katty 20 mg 20 mg 20 mg [facility] tablet RX tablet RX tablet RX dic by other MD by other by other Sports Medicigor espinoza levothyroxi levothyroxi No levothyrox Katty ne 25 mcg ne 25 mcg ine 25 mcg [facility] tablet RX tablet RX tablet RX dic by other MD by other by other Sports MD Sandra espinoza levothyroxi levothyroxi No levothyrox Katty ne 50 mcg ne 50 mcg ine 50 mcg [facility] tablet RX tablet RX tablet RX dic by other MD by other MD by other Sports Medicin e lorazepam 1 lorazepam 1 No lorazepam Katty mg tablet mg tablet 1 mg [facility] pe tablet dic Sports Medicin e meloxicam meloxicam No meloxicam Katty 15 mg 15 mg 15 mg [facility] tablet tablet tablet dic Sports Medicin e metoprolol metoprolol No metoprolol Katty succinate succinate succinate [facility] ER 50 mg ER 50 mg ER 50 mg dic tablet,exte tablet,exte tablet,ext Sports nded nded ended Medicin release 24 release 24 release 24 e hr RX by hr RX by hr RX by other MD other other montelukast montelukast No montelukas Katty 10 mg 10 mg t 10 mg [facility] tablet tablet tablet dic Sports Medicin e prednisone prednisone No prednisone Katty 10 mg 10 mg 10 mg [facility] tablet tablet tablet dic Sports Medicin e Premarin Premarin No Premarin Aza dharmesh 0.625 mg 0.625 mg 0.625 mg Ort hope tablet RX tablet RX tablet RX dic by other MD by other MD by other Sports MD Medicin e rosuvastati rosuvastati No rosuvastat Katty n 10 mg n 10 mg in 10 mg [facility] pe tablet tablet tablet dic Sports Medicin e tramadol tramadol No tramadol Aza dharmesh 37.5 37.5 37.5 [facility] mg-acetamin mg-acetamin mg-acetami dic ophen 325 ophen 325 nophen 325 Sports mg tablet mg tablet mg tablet Medicin Take 1 Take 1 Take 1 e tablet tablet tablet every 4-6 every 4-6 every 4-6 hours by hours by hours by oral route oral route oral route as needed. as needed. as needed. tramadol 50 tramadol 50 No tramadol Katty mg tablet mg tablet 50 mg Orth ope tablet dic Sports Medicin e triamterene triamterene No triamteren Katty 37.5 37.5 e 37.5 [facility] mg-hydrochl mg-hydrochl mg-hydroch dic orothiazide orothiazide lorothiazi Sports 25 mg 25 mg de 25 mg Medicin capsule RX capsule RX capsule RX e by other MD by other MD by other MD aspirin 81 aspirin 81 No aspirin 81 Katty mg chewable mg chewable mg O r[facility]ope tablet one tablet one chewable dic tablet by tablet by tablet one Sports mouth twice mouth twice tablet by Medicin a day for 4 a day for 4 mouth e weeks after weeks after twice a surgery surgery day for 4 weeks after surgery celecoxib celecoxib No celecoxib Katty 200 mg 200 mg 200 mg [facility] capsule capsule capsule dic Take one Take one Take one Spo rts caplet by caplet by caplet by Medicin mouth every mouth every mouth e 12 hours 12 hours every 12 for one for one hours for month. (For month. (For one month. after after (For after surgery use surgery use surgery only) only) use only) amoxicillin amoxicillin No amoxicilli Katty 500 mg 500 mg n 500 mg [facility] capsule capsule capsule dic Sports Medicin e aspirin 81 aspirin 81 No aspirin 81 Katty mg chewable mg chewable mg O r[facility]ope tablet one tablet one chewable dic tablet by tablet by tablet one Sports mouth twice mouth twice tablet by Medicin a day for 4 a day for 4 mouth e weeks after weeks after twice a surgery surgery day for 4 weeks after surgery atorvastati atorvastati No atorvastat Katty n 40 mg n 40 mg in 40 mg Orth[facility] pe tablet RX tablet RX tablet RX dic by other MD by other MD by other Sports Medicin e celecoxib celecoxib No celecoxib Katty 200 mg 200 mg 200 mg [facility] capsule capsule capsule dic Take one Take one Take one Spo rts caplet by caplet by caplet by Medicin mouth every mouth every mouth e 12 hours 12 hours every 12 for one for one hours for month. (For month. (For one month. after after (For after surgery use surgery use surgery only) only) use only) cephalexin cephalexin No cephalexin Katty 500 mg 500 mg 500 mg [facility] capsule capsule capsule dic Sports Medicin e diclofenac diclofenac No diclofenac Katty sodium 75 sodium 75 sodium 75 [facility] mg mg mg dic tablet,pepe tablet,pepe tablet,del Sports yed release yed release ayed M edicin RX by other RX by other release RX e MD by other MD ezetimibe ezetimibe No ezetimibe Katty 10 mg 10 mg 10 mg [facility] tablet tablet tablet dic Sports Medicin e famotidine famotidine No famotidine Katty 20 mg 20 mg 20 mg [facility] tablet RX tablet RX tablet RX dic by other by other MD by other Sports Medicigor espinoza levothyroxi levothyroxi No levothyrox Katty ne 25 mcg ne 25 mcg ine 25 mcg [facility] tablet RX tablet RX tablet RX dic by other MD by other MD by other Sports Medicin olga levothyroxi levothyroxi No levothyrox Katty ne 50 mcg ne 50 mcg ine 50 mcg [facility] tablet RX tablet RX tablet RX dic by other MD by other MD by other Sports MD Sandra espinoza Procedures Procedure Date / Time Performing Clinician Source Performed XR, shoulder, 2 or more 2022-06-01 00:00:00 Stacy montana [facility] [id number] [id number]22-05-26 00:00:00 Katty [facility] Arthroplasty of Right Sports Med icine Shoulder XR, shoulder, 2 or more 2022-03-16 00:00:00 Stacy montana [facility], shoulder, w/o 2022-03-16 00:00:00 Katty Ort hopedi contrast Sports Medicine YAG CAPSULOTOMY - OD - 2019-10-04 17:01:09 Eyad Parish [facility] RIGHT EYE [facility] Medicine Plan of Care Planned Activity Planned Date Details Comments Source Future Scheduled Test TETANUS SHOT (ADULT) [facility] [code = TETANUS SHOT Medicin e (ADULT)] Future Scheduled Test MEDICARE AWV (Initial) [facility] [code = MEDICARE AWV Medicin e (Initial)] Future Scheduled Test FALL SCREEN [code = [facility] FALL SCREEN] Medicine Future Scheduled Test OSTEOPOROSIS SCREENING [facility] [code = OSTEOPOROSIS Medicin e SCREENING] Future Scheduled Test PNEUMOVAX >=65 (PPSV23) [facility] [code = PNEUMOVAX >=65 Medic ine (PPSV23)] Future Scheduled Test FLU VACCINE > 6 MONTHS [facility] [code = FLU VACCINE > 6 Medi cine MONTHS] Future Scheduled Test TETANUS SHOT (ADULT) [facility] [code = TETANUS SHOT Medicin e (ADULT)] Future Scheduled Test MEDICARE AWV (Initial) [facility] [code = MEDICARE AWV Medicin e (Initial)] Future Scheduled Test OSTEOPOROSIS SCREENING [facility] [code = OSTEOPOROSIS Medicin e SCREENING] Future Scheduled Test PNEUMOVAX >=65 (PPSV23) [facility] [code = PNEUMOVAX >=65 Medic ine (PPSV23)] Future Scheduled Test FLU VACCINE > 6 MONTHS [facility] [code = FLU VACCINE > 6 Medi cine MONTHS] Future Scheduled Test FALL SCREEN [code = [facility] FALL SCREEN] Medicine Future Scheduled Test TETANUS SHOT (ADULT) [facility] [code = TETANUS SHOT Medicin e (ADULT)] Future Scheduled Test ZOSTER VACCINE (1 of 2) [facility] [code = ZOSTER VACCINE Medic ine (1 of 2)] Future Scheduled Test MEDICARE AWV (Initial) [facility] [code = MEDICARE AWV Medicin e (Initial)] Future Scheduled Test OSTEOPOROSIS SCREENING [facility] [code = OSTEOPOROSIS Medicin e SCREENING] Future Scheduled Test PNEUMOVAX >=65 (PPSV23) [facility] [code = PNEUMOVAX >=65 Medic ine (PPSV23)] Future Scheduled Test FLU VACCINE > 6 MONTHS [facility] [code = FLU VACCINE > 6 Medi cine MONTHS] Future Scheduled Test FALL SCREEN [code = [facility] FALL SCREEN] Medicine Encounters Start End Encounter Admission Attending Care Care Encounter Source Date/Time Date/Time Type Type Clinicians Facility Department ID 2020-06-16 Inpatient JAE Cordero DAYS [id number] [facility] 14:21:00 Oleksandr [id number] [facility] 2022-07-06 2022-07-06 Ge Barajas [facility] [place] - [facility] Katty 00:00:00 00:00:00 Jina Parks MD: [id number] FOG_Ofc dic [facility] Spo [facility] [place] [address] , Ph. [phone] 2022-06-01 2022-06-01 Ge Barajas [facility] [place] Katty 00:00:00 00:00:00 Jina Parks MD: [id number] FOG_Ofc [place] [facility] [place] [address] , Ph. [phone] 2022-05-26 2022-05-27 Inpatient JAE Porter SURG [id number] [facility] 05:02:00 11:48:00 Ge Friedman [facility] 2022-05-26 2022-05-26 Ge Barajas [facility] [place] - [facility] Katty 00:00:00 00:00:00 Jina Parks MD: [id number] FOG_Surgery dic [facility] , [place], [place] [address] , Ph. [phone] 2022-05-11 2022-05-11 Outpatient FOG_Stocks_ AOSM AOSM [id number] Katty 00:00:00 00:00:00 Dino [id number] Orth [facility]pe [facility] Sports Medicin e 2022-05-11 2022-05-11 Outpatient FOG_Stocks_ AOSM AOSM [id number] Katty 00:00:00 00:00:00 Dino [id number] [facility] Sports Medicin e 2022-05-11 2022-05-11 Outpatient FOG_Stocks_ AOSM AOSM [id number] Katty 00:00:00 00:00:00 Dino [id number] Orth ope dic Sports Medicin e 2022-05-11 2022-05-11 Outpatient FOG_Stocks_ AOSM AOSM [id number] Katty 00:00:00 00:00:00 Dino [id number] Orth ope dic Sports Medicin e 2022-05-11 2022-05-11 Outpatient FOG_Stocks_ AOSM AOSM [id number] Katty 00:00:00 00:00:00 Dino [id number] Orth ope dic Sports Medicin e 2022-05-11 2022-05-11 Outpatient FOG_Stocks_ AOSM AOSM [id number] Katty 00:00:00 00:00:00 Dino [id number] Orth ope dic Sports Medicin e 2022-05-11 2022-05-11 Outpatient FOG_Stocks_ AOSM AOSM [id number] Katty 00:00:00 00:00:00 Dino [id number] Orth [facility] Sports Medicin e 2022-04-20 2022-04-20 Outpatient SUSIE Porter 3DAY [id number] [facility] 08:00:00 16:00:00 Ge [facility] [place] [facility] 2022-05-26 2022-04-20 Inpatient CORY Parks HCATO SURG [id number] [facility] 07:00:00 13:00:00 Ge 15 [facility] 2022-04-14 2022-04-14 Outpatient FOG_Stocks_ AOSM AOSM [id number] Katty 00:00:00 00:00:00 Dino [id number] Orth ope dic Sports Medicin e 2022-04-14 2022-04-14 Outpatient FOG_Stocks_ AOSM AOSM [id number] Katty 00:00:00 00:00:00 Dino [id number] Orth ope dic Sports Medicin e 2022-03-16 2022-03-16 Outpatient SUSIE PorterTO RADI [id number] [facility] 16:07:00 16:07:00 Ge Alcaraz [facility] 2022-03-16 2022-03-16 Ge Barajas [facility] [place] - Ortho Katty 00:00:00 00:00:00 Jina Parks MD: [id number] FOG_Ofc dic [facility] Sp[place]ts [place], [place] [address] , Ph. [phone] 2022-03-07 2022-03-07 Outpatient FOG_Stocks_ AOSM AOSM [id number] Katty 00:00:00 00:00:00 Dino [id number] Orth ope dic Sports Medicin e 2022-03-07 2022-03-07 Outpatient FOG_Stocks_ AOSM AOSM [id number] Katty 00:00:00 00:00:00 Dino [id number] Orth ope dic Sports Medicin e 2022-03-07 2022-03-07 Outpatient FOG_Stocks_ AOSM AOSM [id number] Katty 00:00:00 00:00:00 Dino [id number] Orth ope dic Sports Medicin e 2021-11-30 2021-11-30 Outpatient FOG_Stocks_ AOSM AOSM [id number] Katty 00:00:00 00:00:00 Dino [id number] Orth ope dic Sports Medicin e 2021-11-30 2021-11-30 Benoit Prado [place] [place] - Ortho [id number] Katty 00:00:00 00:00:00 Jina Brown MD: [id number] FOG_Ofc dic [facility] [place] [facility] [place] [address] , Ph. [phone] 2021-11-25 2021-11-25 Outpatient FOG_Stocks_ AOSM AOSM [id number] Katty 00:00:00 00:00:00 Dino [id number] Orth ope dic Sports Medicin e 2021-09-15 2021-09-15 [facility] [id number] Univers 00:00:00 00:00:00 [facility] [id number] it y of [place] [id number] Denys as HANNAH?BLEA [phone] Wy dical [address] OFFICE [facility] 2021-09-01 2021-09-01 Outpatient FOG_Stocks_ AOSM AOSM [id number] Katty 07:59:00 07:59:00 Dino [id number] Orth ope dic Sports Medicin e 2021-08-28 2021-08-28 Outpatient FOG_Stocks_ AOSM AOSM [id number] Katty 12:12:00 12:12:00 Dino [id number] Orth ope dic Sports Medicin e 2021-08-28 2021-08-28 Outpatient SLAVA Brown [id number] 00:00:00 00:00:00 Benoit Prado [id number] 2021-08-28 2021-08-28 Benoit Prado [place] [place] - Ortho [id number] Katty 00:00:00 00:00:00 Jina Brown MD: [id number] FOG_Ofc dic [facility] [place] [facility] [place] [place] [address] , Ph. [phone] 2021-08-14 2021-08-14 Outpatient FOG_Stocks_ AOSM AOSM [id number] Katty 01:25:00 01:25:00 Dino [id number] Orth ope dic Sports Medicin e 2021-08-14 2021-08-14 Outpatient FOG_Stocks_ AOSM AOSM [id number] Katty 01:25:00 01:25:00 Dino [id number] Orth ope dic Sports Medicin e 2021-08-14 2021-08-14 Outpatient FOG_Stocks_ AOSM AOSM [id number] Katty 01:25:00 01:25:00 Dino [id number] Orth ope dic Sports Medicin e 2021-07-29 2021-07-29 Outpatient FOG_Bennett AOSM AOSM [id number] Katty 03:03:00 03:03:00 _Ana [id number] Orth ope dic Sports Medicin e 2020-06-10 2020-06-10 Outpatient Cardenas, HCACL LABO [id number] [facility] 17:57:00 17:57:[address] [place] [address] 2020-05-29 2020-05-30 Outpatient nullFlavo MNA [id number] Memoria 19:15:00 04:59:59 r Neurology 00 l Crystal Richter 2020-05-29 2020-05-30 Outpatient nullFlavo MNA [id number] Memoria 19:15:00 04:59:59 r Neurology 00 l Crystal Richter 2020-05-29 2020-05-29 Outpatient GENEVIEVE Schilling [id number] 14:15:00 23:59:59 Milad 00 Alec 2020-05-29 2020-05-29 Outpatient MHIE MHIE [id number] Memoria 14:15:00 14:15:00 00 l Rober 2020-02-25 2020-02-25 Laboratory Lab, Adc Fam Pob I [facility] [id number]. [id number] Univers 16:56:02 17:16:02 Only Tiff Smith [facility] [id number] ity of [place] [id number] Denys as Lisa [phone] Wy dical nal [address] Office [facility] One 2020-02-25 2020-02-25 Laboratory Lab, Adc [facility] [id number] 16:56:02 17:16:02 Only Fam Pob I Health [id number] [place] [id number] Professio [phone] nal [address] One 2020-02-25 2020-02-25 Outpatient R [facility] [id number] Univers 17:00:00 17:00:00 ity [facility] 2019-10-15 2019-10-15 Office [place], BCM [id number] 09:30:17 09:40:17 Visit Eyad AMBULATOR [id number] Robi Y [id number] 2019-10-15 2019-10-15 Office [place], BCM [id number] [place] [address] 09:30:17 09:40:17 Visit Eyad AMBULATOR [id number] College Robi Y [id number] of [id number] Medi shilpi 300 e 2019-10-04 2019-10-04 Office [place], BCM [id number] 09:19:14 11:04:27 Visit Eyad AMBULATOR [id number] Robi Y [id number] 2019-10-04 2019-10-04 Office Мар[place], BCM [id number] [place] [address] 09:19:14 11:04:27 Visit Eyad AMBULATOR [id number] College Robi Y [id number] of [id number] Medi shilpi 300 e 2019-09-24 2019-09-24 Office [place], BCM [id number] 82 09:52:39 10:02:39 Visit Eyad AMBULATOR 350.1.13.21 Robi Y [id number] [id number] 300 2019-09-24 2019-09-24 Office Марина, BCM [id number] [place] [address] 09:52:39 10:02:39 Visit Eyad AMBULATOR 350.1.13.21 College Robi Y [id number] [facility] 300 e Results Test Description Test Time Test Comments Results Result Comments Source BASIC METABOLIC PANEL 2022-05-27 06:41:00 Test Item Value Reference Range Interpretation Comme nts SODIUM (test code = NA) 142 mmol/L 136-145 N POTASSIUM (test code = K) 3.8 mmol/L 3.5-5.1 N CHLORIDE (test code = CL) 106.0 mmol/L 98-107 N CARBON DIOXIDE (test code = 28.3 mmol/L 21-32 N CO2) GLUCOSE (test code = GLU) 140 mg/dL 70-110 H BLOOD UREA NITROGEN (test 25 mg/dL 7-18 H code = BUN) GLOMERULAR FILTRATION RATE 73.2 >60 T he Glomerular Filtration Rate (test code = GFR) is a calcu lated parameterbased on serum Creati nine, patient age and sex. GFR va luesless than 60 mL/min/1.73 squ are meters are indicative ofCh ronic Kidney Disease. Values less than 15 mL/min/1.73squa re meters indicate Kidney failure. The calculation for GFR is based on the CKD-EPI (20 21) calculation. This formulais race indifferent and is the robert mmended formula for GFRby the [facility] for Adults.The GFR will not calcul ate if the sex is unknown or if t hepatient's age is <18 years. CREATININE (test code = 0.82 mg/dL 0.55-1.30 N CREAT) CALCIUM (test code = CA) 8.3 mg/dL 8.2-10.1 N CBC W/AUTO [id number] 06:24:00 Test Item Value Reference Range Interpretation Comments WHITE BLOOD CELL (test code = 17.3 K/mm3 5.8-11.0 H WBC) RED BLOOD CELL (test code = RBC) 4.01 M/mm3 4.2-5.4 L HEMOGLOBIN (test code = HGB) 12.2 g/dL 12-16 N HEMATOCRIT (test code = HCT) 36.3 % 37-47 L MEAN CELL VOLUME (test code = 91 fL 80-98 N MCV) MEAN CELL HGB (test code = MCH) 30.4 pg 27-34 N MEAN CELL HGB CONCENTRATION (test 33.6 g/dL 30.8-34.1 N code = MCHC) RED CELL DISTRIBUTION WIDTH (test 12.9 % 11-16 N code = RDW) PLT (test code = PLT) 268 K/mm3 130-400 N MEAN PLATELET VOLUME (test code = 10.9 fL 8.9-12.1 N MPV) NEUTROPHIL % (test code = NT%) 73.0 % 45-70 H LYMPHOCYTE % (test code = LY%) 15.4 % 20-40 L MONOCYTE % (test code = MO%) 10.9 % 3-10 H EOSINOPHIL % (test code = EO%) 0.0 % 1-5 L BASOPHIL % (test code = BA%) 0.1 % 0.0-1.1 N NEUTROPHIL # (test code = NT#) 12.62 K/mm3 2.00-7.50 H LYMPHOCYTE # (test code = LY#) 2.67 K/mm3 1.50-4.00 N MONOCYTE # (test code = MO#) 1.89 K/mm3 0.2-0.8 H EOSINOPHIL # (test code = EO#) 0.00 K/mm3 0.04-0.4 L BASOPHIL # (test code = BA#) 0.02 K/mm3 0.02-0.10 N MANUAL DIFF REQUIRED (test code = NO MANUAL DIFF MDIFF) NUCLEATED RED BLOOD CELL (test 0 % 0-0 N code = NRBC) SPECIMEN COMMENT: POD #1COMPREHENSIVE METABOLIC [id number] 15:20:00 Test Item Value Reference Range Interpretation Comments SODIUM (test code = 141 mmol/L 136-145 N NA) POTASSIUM (test 4.1 mmol/L 3.5-5.1 N code = K) CHLORIDE (test code 101.0 mmol/L 98-107 N = CL) CARBON DIOXIDE 31.4 mmol/L 21-32 N (test code = CO2) GLUCOSE (test code 132 mg/dL 70-110 H = GLU) BLOOD UREA NITROGEN 32 mg/dL 7-18 H (test code = BUN) GLOMERULAR 66.3 >60 The Glomerular FILTRATION RATE Filtration R ate is a (test code = GFR) calculated parameterbased on serum Creatinin e, patient age and sex. GFR valuesless than 60 mL/min/1.73 squ are meters are jess cative ofChronic Kidne y Disease. Values less than 15 mL/min/1.73squa re meters indicate Kidney failure. The calculation for GFR is based on the CK D-EPI (2020) calculat ion. This formulais race indifferent and is the recommended for dionna for GFRby the [facility] at[facility] Foundati on for Adults.The GFR will not calculate i f the sex is unknown or if thepatient's ag e is <18 years. CREATININE (test 0.89 mg/dL 0.55-1.30 N code = CREAT) TOTAL PROTEIN (test 6.9 g/dL 6.4-8.2 N code = PROT) ALBUMIN (test code 3.7 g/dL 3.4-5.0 N = ALB) GLOBULIN (test code 3.2 g/dL 2.2-4.2 N = GLOB) ALBUMIN/GLOBULIN 1.2 0.7-2.0 N RATIO (test code = A/G) CALCIUM (test code 9.3 mg/dL 8.2-10.1 N = CA) BILIRUBIN TOTAL 0.60 mg/dL 0.2-1.00 N (test code = BILT) SGOT/AST (test code 35.0 U/L 15-37 N = AST) SGPT/ALT (test code 64.0 U/L 12-78 N = ALT) ALKALINE 90 U/L 46-116 N PHOSPHATASE TOTAL (test code = ALKP) PROTHROMBIN [id number] 15:12:00 Test Item Value Reference Range Interpretation Comments PROTHROMBIN TIME 11.0 secs 9.7-12.5 N Please note new normal PATIENT (test code = range. PTP) INTERNATIONAL NORMAL 0.99 <2.0 RECOMME NDED THERAPEUTIC RATIO (test code = RANGE FOR ORAL INR) ANTICOAGULANTTR EATMENT: CONDITION INRPr ophylaxis of venous throm bosis in 2.0 - 3.0 high- risk medical or surg ical patientsTreatme nt of venous thrombos is 2.0 - 3.0Prevention o f embolism 2.0 - 3.0Prevention o f recurrent embol ism, or 3.0 - 4.5 patie nts with mechanical pros thetic intravascular v barr IS PATIENT ON ANTICOAGULANTS ? YLIST ANTICOAGULANT/ANTI PLT MEDICATION : AspirinHas Lab been notified if Patient is on Heparin Drip? NOTHROMBOPLASTIN TIME [id number] 15:12:00 Test Item Value Reference Range Interpretation Comments PTT ACTIVATED (test 25.0 secs 26.6-34.6 L Please n ote new code = APTT) normal range. IS PATIENT ON ANTICOAGULANTS ? YLIST ANTICOAGULANT/ANTI PLT MEDICATION : AspirinHas Lab been notified if Patient is on Heparin Drip? NOCBC W/AUTO DIFF 2022-04-20 14:58:00 Test Item Value Reference Range Interpretation Comments WHITE BLOOD CELL (test code = WBC) 14.1 K/mm3 5.8-11.0 H RED BLOOD CELL (test code = RBC) 4.80 M/mm3 4.2-5.4 N HEMOGLOBIN (test code = HGB) 14.6 g/dL 12-16 N HEMATOCRIT (test code = HCT) 43.0 % 37-47 N MEAN CELL VOLUME (test code = MCV) 90 fL 80-98 N MEAN CELL HGB (test code = MCH) 30.4 pg 27-34 N MEAN CELL HGB CONCENTRATION (test 34.0 g/dL 30.8-34.1 N code = MCHC) RED CELL DISTRIBUTION WIDTH (test 12.5 % 11-16 N code = RDW) PLT (test code = PLT) 343 K/mm3 130-400 N MEAN PLATELET VOLUME (test code = 10.7 fL 8.9-12.1 N MPV) NEUTROPHIL % (test code = NT%) 67.1 % 45-70 N LYMPHOCYTE % (test code = LY%) 24.2 % 20-40 N MONOCYTE % (test code = MO%) 6.4 % 3-10 N EOSINOPHIL % (test code = EO%) 1.1 % 1-5 N BASOPHIL % (test code = BA%) 0.6 % 0.0-1.1 N NEUTROPHIL # (test code = NT#) 9.44 K/mm3 2.00-7.50 H LYMPHOCYTE # (test code = LY#) 3.40 K/mm3 1.50-4.00 N MONOCYTE # (test code = MO#) 0.90 K/mm3 0.2-0.8 H EOSINOPHIL # (test code = EO#) 0.15 K/mm3 0.04-0.4 N BASOPHIL # (test code = BA#) 0.08 K/mm3 0.02-0.10 N MANUAL DIFF REQUIRED (test code = NO MANUAL DIFF MDIFF) NUCLEATED RED BLOOD CELL (test 0 % 0-0 N code = NRBC) - CT UP EXTREM W/O CONT [id number] 07:15:00 [facility] 1945 Sex: F Patient Name: JAI SHIN Unit No: [id number] EXAMS: CPT CODE: [id number] CT UP EXTREM W/[place] [address] CT OF THE RIGHT SHOULDER WITH SAGITTAL AND CORONAL RECONSTRUCTIONS DIAGNOSIS: There is severe arthritic change of the glenohumeral joint and avascular necrosis of the humeral head with posterior cortical erosion and flattening. Osteophytes are present. Full-thickness cartilage loss is noted. Large joint and bursal effusions are seen with loose bodies. COMMENT: COMPARISON: No prior exams available. Scans were performed with thin sections and reconstructions were obtained. CT radiation dose optimization is achieved for this examination by the use of a CT protocol in accordance with ACR practice standards and adherence to computer help desk specialist's recommendations. Degenerative changes are present as noted. There is severe atrophy of the supraspinatus muscle. at 0715 Reported and signed by: Carl Alexandre MD CC: Ge Parks MD Technologist: MARCUS CANCINO MRI CTDI: DLP: Trnscrpt: 03/17/2022 (0715) JosafatJCL [facility] NAME: JAI SHINGAL [address] PHYS: Ge Nova : 1945 AGE: 76 SEX: F [place], [place] [address] LOC: EspinozaRAD PHONE #: [phone] EXAM DATE: 03/16/2022 STATUS: DEP CLI FAX #: [phone] RAD #: D/C DT PAGE 1 Signed Report Patient Name: JAI SHIN Unit No: [id number] EXAMS: CPT CODE: [id number] CT UP EXTREM W/[place] [address] (Continued) Orig Print D/T: S: 03/17/2022 (0718) [facility] [address] PHYS: Ge Nova : 1945 AGE: 76 SEX: F [place] [address] LOC: EspinozaRAD PHONE #: [phone] EXAM DATE: 03/16/2022 STATUS: DEP CLI FAX #: [phone] RAD #: D/C DT PAGE 2 Signed ReportNovel Coronavirus 2019 [id number] 12:36:00 Test Item Value Reference Range Interpretation Comments Novel Coronavirus Negative Negative Positive r esults are 2019 Inhouse (test indicativ e of the presence code = COVNONPUI) ofSARS-CoV -2 RNA, clinical correlation wit h patient historyand othe r diagnostic info rmation is necessary to determinepatien t infection status. Positiv e results do not rule out bacterial infection or co -infection with other viru ses. Negative result s do not preclude SARS-C oV-2 infection andsh ould not be used as the melonie e basis for patient managementdecis ions. Negative result s must be combined with otherclinical observations, p atient history, and epidemiological information . Detection of SARS-CoV-2 RNA may be affe cted bysample collec tion methods, storag e conditions, and /or stageof infection. Belem l RNA mutations, vacc inations, antiviraltherap eutics, antibiotics, chemotherapeuti c orimmunosuppres josh drugs have not been e valuated for effectson d etection. Results are for the identification of SARS-CoV-2 RNA usingthe [employer] M2000 Sy stem under the FDA Emergen cy UseAuthorizatio n. The testing is perf ormed by personneltraine d in the procedures for the [employer] M2000 molecular diagnostic SARS-CoV-2 assa y in vitro. Novel Coronavirus 2018 [id number] 12:35:00 Test Item Value Reference Range Interpretation Comments Novel Coronavirus Negative Negative Positive r esults are 2019 Inhouse (test indicativ e of the presence code = COVNONPUI) ofSARS-CoV -2 RNA, clinical correlation wit h patient historyand othe r diagnostic info rmation is necessary to determinepatien t infection status. Positiv e results do not rule out bacterial infection or co -infection with other viru ses. Negative result s do not preclude SARS-C oV-2 infection andsh ould not be used as the melonie e basis for patient managementdecis ions. Negative result s must be combined with otherclinical observations, p atient history, and epidemiological information . Detection of SARS-CoV-2 RNA may be affe cted bysample collec tion methods, storag e conditions, and /or stageof infection. Belem l RNA mutations, vacc inations, antiviraltherap eutics, antibiotics, chemotherapeuti c orimmunosuppres josh drugs have not been e valuated for effectson d etection. Results are for the identification of SARS-CoV-2 RNA usingthe [employer] M2000 Sy stem under the FDA Emergen cy UseAuthorizatio n. The testing is perf ormed by personnelchyna d in the procedures for the [employer] M2000 molecular diagnostic SARS-CoV-2 assa y in vitro. YAG CAPSULOTOMY - OD - RIGHT [id number] 17:01:09Procedure note: Nd:YAG posterior capsulotomy was performed on the right eye. Parameters were: 22 Pulses 2.6 MJ There were no complications. One drop of alphagan was given, and I reviewed instructions re: care of the eye and activity with the patient. Patient has been instructed to call immediately if any increase in floaters, presence of flashes, decreased vision, or obscurations of visual field are noted in the postoperative periodUniversity of California, [facility] [id number] 16:15:00 Patient Name: JAI SHIN Unit No: [id number] EXAMS: CPT CODE: [id number] DUP VEIN [id number] EXAM: LEFT LOWER EXTREMITY VENOUS DOPPLER ULTRASOUND History: Pain and swelling Technique: High-resolution grayscale, color Doppler, and spectral analysis of the deep venous system of the left lower extremity was performed. Findings: There is normal compression and augmentation of the common andsuperficial femoral as well as the popliteal veins and tibioperoneal trunks. Normal flow identified.Large intramuscular hematoma within the gastrocnemius muscle bellies is present within the mid left calf which measures at least 10 x 7 cm. Impression: 1. No evidence of venous thrombosis in the left lower extremity. 2. Large intramuscular hematoma is present within the left calf. at 0475 Reported and signed by: Lacie Neri MD CC: Catracho Medel MD Technologist: ROGELIO DAMIAN RDMS, RVT Transcribed D/ (3251) JosafatGVG [facility] NAME: JAI SHIN [address] [facility] PHYS: Catracho Ma MD : 1945 AGE: 72 SEX: F [place] [address] LOC: Y.RAD PHONE #: [phone] EXAM DATE: 06/06/2018 STATUS: REG CLI FAX #: [phone] RAD #: D/C DT PAGE 1 Signed Report Patient Name: JAI SHIN Unit No: [id number] EXAMS: CPT CODE: [id number] DUP VEIN [id number] (Continued) Orig Print D/T: S: 06/06/2018 (7028) [facility] NAME: JAI SHIN [address] [facility] PHYS: Catracho Ma MD : 1945 AGE: 72 SEX: F [place] [address] LOC: Y.RAD PHONE #: [phone] EXAM DATE: 06/06/2018 STATUS: REG CLI FAX #: [phone] RAD #: D/C DT PAGE 2 Signed ReportBASIC METABOLIC [id number] 06:17:00 Test Item Value Reference Range Interpretation Comments SODIUM (test code = 139 mmol/L 136-145 N NA) POTASSIUM (test code = 4.3 mmol/L 3.5-5.1 N K) CHLORIDE (test code = 103.0 mmol/L 98-107 N CL) CARBON DIOXIDE (test 23.4 mmol/L 21-32 N code = CO2) GLUCOSE (test code = 163 mg/dL 70-110 H GLU) BLOOD UREA NITROGEN 19 mg/dL 7-18 H (test code = BUN) GLOMERULAR FILTRATION 56.8 >60 Unit o f measure: RATE (test code = GFR) mL/mi n/1.73 [id number] Range:Healthy Adults >90 mL/min/1.73 m2 For Chronic Kidney Disease: Stage II Mild Decrease i n GFR 60-90 Stage III Moderate Decrea se in GFR 30-59 St age IV Severe Decre ase in GFR 15-29 St age V Kidney Failur e <15 CREATININE (test code 0.96 mg/dL 0.55-1.30 N = CREAT) CALCIUM (test code = 8.5 mg/dL 8.2-10.1 N CA) HGB [id number] 05:50:00 Test Item Value Reference Range Interpretation Comments HEMOGLOBIN (test code = HGB) 12.1 g/dL 12-16 N HEMATOCRIT (test code = HCT) 35.9 % 37-47 L Notes Date/Time Note Provider Source 2022-05-27 10:47:00-00:00 [facility] ([facility]) Clinical Note REPORT#:[id number] REPORT STATUS: Signed DATE:05/27/22 TIME: 1047 PATIENT: JAI SHIN UNIT #: [id number] ROOM/BED: [address] : [birth year] AGE: 76 SEX: F ATTEND: Jarred Parks MD ADM AUTHOR: Sujata Altamirano MD * ALL edits or amendments must be made on the el [employer]/computer document * Clinical Note Note: History: RT SHOULDER PAIN S/P RT TSA PMH: HTN, GERD POD:1 MD who placed block: MARYURI Type of block: IS S/S Activity status: AT [facility] Pain: Physical Exam: VAS: 2 LOS: 1 Resp Quality: Side Effects: MOTOR MVMT AND STRENGTH INTACT TO RUE BLOCK FOLLOW UP. PAIN CONTROLLED WITH ORAL MEDS PT HOME TODAY. PT SMILING. SPOUSE AT BEDSIDE Agree with the findings and plan as documented b peggy Russo RN. Stacy Altamirano MD Anesthesiology Portions of this section wer e scribed by Delphine Russo on 05/27/22 at 1047 Electronically Signed by Sujata Altamirano MD o mingo 06/24/22 at 1331 RPT #:[id number] END OF REPORT 2022-05-27 08:49:00-00:00 [facility] ([facility]) Discharge Summary REPORT#:[id number] REPORT STATUS: Signed DATE:05/27/22 TIME: 0849 PATIENT: JAI SHIN UNIT #: [id number] ROOM/BED: [facility] : [facility] AGE: 76 SEX: F ATTEND: Jarred Parks MD ADM AUTHOR: Willis Lucas DO * ALL edits or amendments must be made on the [employer]/computer document * General Information Discharge date: 05/27/22 Discharge diagnosis: R GHJ OA Hospital course: Discharge Diagnosis: R GHJ OA Discharge: Home Pt Condition: Stable Activity: Ambulate with Assistance Diet as tolerated Sig Findings: uneventful course Treatment Rendered: R TSA Prescriptions: On chart Special Instructions: REMAIN IN SLING Follow- up appointment: 1 Week(s) Brief Hospital Course The patient underwent the above procedure on the ir admission date without complication. Postoperatively they were transfer red to the orthopedic patient care unit. They received 24h rs postoperative antibiotics. They were transitioned from IV to oral pain medications with good contr ol at discharge. They were placed in a sling and worked on elbow/wr ist ROM and ADLs with PT. Once patient met all criteria they were deemed approp riate for discharge. They had no other complications during the visit. Med Rec Med Rec Discharge meds: Continue taking these medications: TRIAMTERENE/HCTZ 37.5/25 MG (DYAZIDE 37.5/25 MG) 37.5 MG-25 MG CAP 1 CAPSULE ORAL DAILY. FAMOTIDINE (PEPCID) 20 MG TAB 20 MILLIGRAM ORAL EVERY 12 HOURS. DICLOFENAC SODIUM ER (VOLTAREN) 75 MG TAB.DR 75 MILLIGRAM ORAL EVERY 12 HOURS. MULTIVITAMIN/MIN/IRON/LUTEIN (CENTRUM SILVER ULT RA WOMEN) 1 EACH TAB 1 EACH ORAL DAILY. ASPIRIN EC (ECOTRIN) 81 MG TAB.EC 81 MILLIGRAM ORAL BEDTIME. METOPROLOL SUCC XL (TOPROL XL) 50 MG TAB.SA 50 MILLIGRAM ORAL DAILY. EZETIMIBE (ZETIA) 10 MG TAB 10 MILLIGRAM ORAL DAILY. MAGNESIUM OXIDE (MAGNESIUM OXIDE) 500 MG TAB 500 MILLIGRAM ORAL BEDTIME. [VITAMIN B12] ORAL DAILY. ACETAMINOPHEN (TYLENOL) 500 MG TAB 500 MILLIGRAM ORAL EVERY 6 HOURS. Instructions: FOR PAIN Discharge Instructions PCP )( Discharge to: Home/Self Care Discharge Instructions Additional Discharge Routines: Attending Follow- Up )( Diet: Regular )( Activity: REMAIN IN SLING Follow-up Appointments Attending Physician: Attending Physician: Ge Parks MD Electronically Signed by Willis Lucas DO on at 0851 RPT #:[id number] END OF REPORT 2022-05-27 08:47:00-00:00 [facility] ([facility]) Orthopaedic Progress Note REPORT#:[id number] REPORT STATUS: Signed DATE:05/27/22 TIME: 08 PATIENT: JAI SHIN UNIT #: [id number] ROOM/BED: [address] : [birth year] AGE: 76 SEX: F ATTEND: Jarred Parks MD ADM AUTHOR: Willis Lucas DO * ALL edits or amendments must be made on the [employer]/computer document * Subjective Comments: Subjective: Patient is alert, oriented, and resting comfortably. Tolerating PO intake well. Pain is tolerable. Denies CP or SOB. Denies Numb ness, tingling or weakness. Objective: R Shoulder- dressing is clean, dry, and intact. Arm in sling. Sensation intact to Axillary, radial, median, u lnar nerves Able to fire deltoid Intact motor function in radial, median, ulnar nerves Radial pulse palpable Laboratory Tests 05/27/22 0450: [Embedded Image Not Available] Vital Signs: Date Time Temp Pulse Resp B/P B/P Pulse O2 O2 F low FiO2 Mean Ox Delivery Rate 05/27 0751 Nasal 3 98 cannula 05/27 0705 36.2 71 14 114/68 83.5 98 Room air 05/27 0345 36.5 63 16 100/60 73.1 96 05/27 0145 94 Nasal 3 32 cannula 05/26 2210 36.2 76 16 126/69 88.2 95 Nasal cannula 05/26 2140 93 Nasal 3 32 cannula 05/26 2128 Nasal 3 cannula Assessment/ Plan: R TSA - Post op day #1 May discharge home when ready from orthopedic [facility] - Follow up in office with physician in 1 week(s). Prescription for pain control in chart. Electronically Signed by Willis Lucas DO on at 0848 RPT #:[id number] END OF REPORT 2022-05-26 09:43:00-00:00 [id number] [place] [address] PATIENT NAME: JAI SHIN ADMIT DATE: ACCOUNT NO: [id number] ROOM NO: [facility] AGE: 76 REPORT TYPE: OPERATIVE REPORT SEX: F ADMITTING PHYSICIAN:Ge Parks MD ATTENDING PHYSICIAN:Ge Parks MD OPERATION DATE: 05/26/2022 PREOPERATIVE DIAGNOSIS: Right shoulder osteoarth ritis. POSTOPERATIVE DIAGNOSES: 1. Right shoulder osteoarthritis. 2. Right shoulder partial biceps tendon tear. PROCEDURES: 1. Right shoulder examination under anesthesia. 2. Right shoulder total shoulder arthroplasty. 3. Right shoulder open biceps tenodesis. 4. Right shoulder open inferior capsular contrac ture release. SURGEON: Ge Parks M.D. ASSISTANTS: Rishabh Kemp M.D. and Willis richardson DO. ANESTHESIA: General. COMPLICATIONS: None. BLOOD LOSS: 100 mL. INDICATIONS FOR PROCEDURE: Ms. Shin is a 76-year- old female with end-stage osteoarthritis of her right glenohumeral joint, failing nonoperative treatment. Risks and benefits of total shoulder arthroplast y were discussed with her and she desired to proceed with surgery. PROCEDURE IN DETAIL: The patient was tenisha en to the operating room and placed on the operating room table in supine position wher e general anesthesia was administered. The patient wa s then positioned in modified beach chair position. Examination under anesthesia did not reveal any pathological laxity and shoulder just revealed stiff ness associated with disease. Next, the right upper extremity and shoulder girdle region prepped and draped in usual sterile fashion. Standard deltopectoral approach was made retracting the cephalic vein laterally. Conjoined tendon was identified and r etracted medially. Anterior humeral circumflex vessels were identifi ed and suture ligated with 0 Vicryl in interrupted fashion. Axillar y nerve was identified and protected throughout the case. Stay suture placed in subscapularis tendon and subscapularis tenotomy was performed along the anatomical neck of the humer us. Subscapularis release was performed releasing the superior, middle, and in ferior glenohumeral ligament, PATIENT NAME: JAI SHINGAL ACCOUNT #: [id number] taking care to protect the axillary nerv e and release of inferior glenohumeral ligament. There was an inferior capsular contrac ture present, so the inferior capsule was released off the glenoid onc e again protecting the axillary nerve. Proximal humerus was then dislocated. Supraspina tus, infraspinatus, and teres minor had some undersurface partial thickness te aring, but no full-thickness tears were identified. Biceps was flattened and partially torn, so the intraarticular portion of biceps was resected. B iceps was suture tenodesed to the pectoralis major tendon with 0 Vicryl in int errupted fashion. [place] osteophytes were then removed off the hu meral head. Humeral head osteotomy was performed along the anatomical neck of t he humerus. The humeral head was sized as a 40. A cup protector was placed proximally a nd retracted posteriorly. Centering hole was made in the glenoid. The queenie oid was then prepared for the DJO augmented glenoid system because the patient had anterior glenoid wear and a type D glenoid. A 5 mm augment was selected and cemented into place in the anterior defect after all reaming and preparatio n had been done. Proximal humerus was then dislocated. Cup protector was r emoved. Proximal humerus was then prepared for the DJO CS edge component and a size 1 nucleus with a 40-head was selected. Three #2 transosseous FiberWire dickey tures were placed through the stump of subscapularis tendon to the lesser tube rosity. Final humeral implant was impacted in place. Glenohumeral join t was reduced. There was 50% posterior translation possible with spontaneous re duction noted. Next, the subscapularis was then repaired using the transosseous FiberWire suture. Rotator interval was reapproximated with #2 FiberWire in interrupted [id number] fashion. Rotator interval and subscapularis were then ove rsewn with a #1 Vicryl in a continuous running fashion. There was 30 degrees external rotation present at the termination of this closure. Wound was irrig ated thoroughly. Deep tissue was reapproximated with 0 Vicryl in interrupted fashion. Subcutaneous tissue was reapproximated with 2-0 Vicryl in interrupte d fashion. Skin was reapproximated with 3-0 Monocryl in continuous r unning subcuticular fashion. Steri-Strips, sterile dressing, and sling were a pplied. The patient tolerated the procedure well and was transferred to the re covery room in satisfactory condition. The skilled assistance of Toshia Linag was necessary during this complex surgical procedure. He assisted with zuly ry aspect of the operation including, but not limited to, proper and safe p ositioning of the patient, obtaining adequate surgical exposure, manipulati on of surgical instruments, suture management, surgical knot tying, the cont inual process of hemostasis during the procedure itself in addition to surgical wound closure and removal of the patient from the operating table and returni ng the patient back to the [facility]. His assistance allowed me to pe rform the most sensitive and technical potions of this op eration using 2 hands, thus enhancing efficiency and patient safety. This would not be possible witho ut the help of a skilled driller's assistant familiar with the procedure and capabl e of safely performing the aforementioned tasks. Dictated By: Ge Parks MD Date Dictated: 05/26/2022 09:43:38 Date Transcribed: 05/26/2022 12:08:32 TBE/NAF PATIENT NAME: JAI SHIN ACCOUNT #: [id number] Receipt ID: [id number] Authenticated by Ge Parks MD On 023 06:48:13 AM at 0648 PATIENT NAME: JAI SHIN ACCOUNT #: [id number] 2022-04-20 14:03:00-00:00 [id number] [place] [address] PATIENT NAME: JAI SHIN ADMIT DATE: ACCOUNT NO: [id number] ROOM NO: AGE: 76 REPORT TYPE: ELECTROCARDIOGRAM SEX: F ADMITTING PHYSICIAN:Ge Parks MD ATTENDING PHYSICIAN:Ge Parks MD Order: [id number] Test Reason : PRE OP CLEARANCE HTN Test Date/Time Stamp: TueApr 20 2022 14:03:54 Blood Pressure : / mmHG Vent. Rate : 056 BPM Atrial Rate : 056 BPM P-R Int : 170 ms QRS Dur : 084 ms QT Int : 444 ms P-R-T Axes : 067 038 061 degree s QTc Int : 428 ms Sinus bradycardia Nonspecific ST and T wave abnormality Abnormal ECG When compared with ECG of 10-JUN-2020 15:08, Nonspecific T wave abnormality has repla braxton inverted T waves in Inferior leads Nonspecific T wave abnormality, improved in Ante rior leads Confirmed by PIPE RAJPUT MD ([id number]) on 04/25/2022 7:45:30 PM Referred By: Ge Parks Confirmed by:PIPE RAJPUT MD PATIENT NAME: JAI SHIN ACCOUNT #: [id number] 2020-06-16 12:06:00-00:00 [id number] [place] [address] PATIENT NAME: JAI SHIN ADMIT DATE: ACCOUNT NO: [id number] ROOM NO: AGE: 74 REPORT TYPE: OPERATIVE REPORT SEX: F ADMITTING PHYSICIAN: ATTENDING PHYSICIAN:Oleksandr Cardenas MD OPERATION DATE: 06/16/2020 OUTPAT[facility] PREOPERATIVE DIAGNOSES: 1. Bilateral carpal tunnel compression syndrome of right greater than left. 2. 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 POSTOPERATIVE DIAGNOSES: 1. Bilateral carpal tunnel compression syndrome of right greater than left. 2. 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 PROCEDURES PERFORMED: 1. Right endoscopic carpal tunnel release. 2. Right middle finger PIP joint steroid injecti on under mini C-arm control. 3. Left carpal tunnel corticosteroid injection. SURGEON: Oleksandr Cardenas MD STUDIO COUCH FRAME BUILDER: ANESTHESIA: IV Xylocaine block anesthesia, [facility]. EBL: 0 SPECIMEN: NONE INDICATION: A 74-year-old white female w ith bilateral carpal tunnel clinically and electrodiagnostically, r ight greater than left, for endoscopic carpal tunnel release, right and injection of the left with st eroid. The patient also has right middle finger degenera tive arthritis of the PIP joint with ulnar deviation for steroid injection. PROCEDURE IN DETAIL: After satisfactory IV Xyloc faisal block anesthesia, the right hand and arm were prep ped and draped in the usual orthopedic fashion. All dissection was performed under 2.5 power magnifi cation. Arm was exsanguinated with a David bandage and in flated to 250 mmHg, 75 mmHg prior to regional block anesthetic. PATIENT NAME: JAI SHIN ACCOUNT #: [id number] An endoscopic carpal tunnel release was performed on the right with a proximal portal 1 cm proximal and rad ial to the pisiform, a distal portal in line joining the abducted thumb and middle-ring finger comple x. Tissue was dissected down through skin and subcutaneous tissue. Forearm fa scia and palmar fascia were released. A [place] elevator was passed beneath th e transverse carpal ligament, followed by trocar and cannula system. The 30-de gree 4-mm arthroscope was inserted proximally. Distal ligament was identif ied, freed of synovium, released with a triangle knife and retrograde kn bill. Arthroscope was removed proximally, inserted distally, and proximal liga ment freed of synovium and released with a retrograde knife. There was comp lete release of ligament with retraction past the aperture of the cannula and good fatty infiltration. Trocar, cannula, and arthroscope was rem gwen. The release was probed and found to be complete. A 2% lidocaine, epinephrine, and Kenalog solution 3 mL was placed along the flexor tendinosis and skin clos ed with 4-0 nylon mattress sutures. At this time, the right middle finger PIP joint was inspected under mini fluoroscan C-arm for arthritis and a radial inje ction of 2% lidocaine, epinephrine, and Kenalog solution 2 mL was infil trated, bulky compression dressing was applied and a volar neutral splint was applied. Tourniquet was released after 30 minutes with good capillary re fill of the fingertips. The left carpal tunnel and flexor tendinosis was injected with 5 mL of 2% lidocaine, epinephrine, and Kenalog solution. Th e patient tolerated all procedures well and returned to recovery room in satisfactory condition. Dictated By: Oleksandr Cardenas MD WT: OP:LINDSAY/AIDA/ODILIA Conf#: [id number]/DID#: [id number] Authenticated and Edited by Oleksandr Cardenas MD On 06/18/20 1:53:39 PM at 1356 PATIENT NAME: JAI SHIN ACCOUNT #: [id number] 2020-06-10 15:08:00-00:00 [id number] [place] [address] PATIENT NAME: JAI SHIN ADMIT DATE: ACCOUNT NO: [id number] ROOM NO: AGE: 74 REPORT TYPE: ELECTROCARDIOGRAM SEX: F ADMITTING PHYSICIAN: ATTENDING PHYSICIAN:Oleksandr Cardenas MD Order: [id number] Test Reason : PRE SURGERY Test Date/Time Stamp: TueJun 10 2020 15:08:37 Blood Pressure : / mmHG Vent. Rate : 055 BPM Atrial Rate : 055 BPM P-R Int : 172 ms QRS Dur : 082 ms QT Int : 448 ms P-R-T Axes : 054 033 006 degree s QTc Int : 428 ms Sinus bradycardia Nonspecific ST and T wave abnormality Abnormal ECG No previous ECGs available Confirmed by PIPE RAJPUT MD ([id number]) on 06/12/2020 1:24:30 PM Referred By: Oleksadnr Cardenas Confirmed by:PIPE Moscoso MD Electronically Signed by Pipe Rajput MD on 05/29 07/18 at 1324 PATIENT NAME: JAI SHIN ACCOUNT #: [id number] 2018-03-31 16:37:00-00:00 [id number] [place] [address] PATIENT NAME: JAI SHIN ADMIT DATE: 03/27/18 ACCOUNT NO: [id number] ROOM NO: Y.510 AGE: 72 REPORT TYPE: DISCHARGE SUMMARY REPORT SEX: F ADMITTING PHYSICIAN:Catracho Medel MD ATTENDING PHYSICIAN:Catracho Medel MD ADMISSION DATE: 03/27/2018 DISCHARGE DATE: 03/28/2018 ADMITTING DIAGNOSIS: Degenerative joint disease, left knee. DISCHARGE DIAGNOSIS: Status post unicompartmenta l arthroplasty, medial compartment, left knee. OPERATIONS AND PROCEDURES: O n 03/27/2018, unicompartmental arthroplasty, medial compartment, left knee, by Dr. Catracho Medel. HOSPITAL COURSE: Above-liste d procedure under general anesthesia with 100 mL of blood loss, no complications . Mobilized with physical therapy, weightbearing as tolerated. Hemoglobin 12.1 on the first postoper ative day. DISCHARGE INSTRUCTIONS: Activity is weightbearin g as tolerated. DISCHARGE MEDICATIONS: Aspirin 81 mg twice daily for 4 weeks. DIET: Usual. FOLLOWUP PLANS: With Dr. Catracho Medel in 10 da ys. CONDITION: Stable. DISPOSITION: Discharged to home. Dictated By: Catracho Medel MD WT: DS:LINDSAY/TERRI/ODILIA Conf#: [id number]/DID#: [id number] Authenticated by Catracho Medel MD On 09:49:20 AM at 0949 PATIENT NAME: JAI SHIN ACCOUNT #: [id number] 2018-03-28 13:15:00-00:00 [facility] ([facility]) Clinical Note REPORT#:[id number] REPORT STATUS: Signed DATE:03/28/18 TIME: 1315 PATIENT: JAI SHIN UNIT #: [id number] ROOM/BED: [place]-A : 43 AGE: 72 SEX: F ATTEND: Arvind Medel MD ADM AUTHOR: Catracho Medel MD * ALL edits or amendments must be made on the [employer]/computer document * Clinical Note Note: POD #1 Feels good. Amb in kat. Min pain. PE: Last Documented: Result Date Time Pulse Ox 94 03/28 1135 B/P 138/66 03/28 1135 B/P Mean 95 03/28 1135 O2 Delivery Room air 03/28 113 Temp 98.6 03/28 1135 Pulse 55 03/28 1135 Resp 15 03/28 1135 O2 Flow Rate 3.594513 03/28 0740 FiO2 32 03/28 0018 Drsg D/I. Foot NVI. Laboratory Tests: 03/28 0314 Chemistry Sodium (136 - 145 mmol/L) 139 Potassium (3.5 - 5.1 mmol/L) 4.3 Chloride (98 - 107 mmol/L) 103.0 Carbon Dioxide (21 - 32 mmol/L) 23.4 BUN (7 - 18 mg/dL) 19 H Creatinine (0.55 - 1.30 mg/dL) 0.96 Glomerular Filtr Rate (>60) 56.8 Glucose (70 - 110 mg/dL) 163 H Calcium (8.2 - 10.1 mg/dL) 8.5 Hematology Hgb (12 - 16 g/dL) 12.1 Hct (37 - 47 %) 35.9 L Home at 1316 RPT #:[id number] END OF REPORT 2018-03-27 18:18:00-00:00 [id number] [place] [address] PATIENT NAME: JAI SHIN ADMIT DATE: 03/27/18 ACCOUNT NO: [id number] [facility]GE[facility] 72 REPORT TYPE: OPERATIVE REPORT SEX: F ADMITTING PHYSICIAN:Catracho Medel MD ATTENDING PHYSICIAN:Catracho Medel MD OPERATION DATE: 03/27/2018 PREOPERATIVE DIAGNOSES: 1. Degenerative joint disease, left knee. 2. Degenerative joint disease, right knee. POSTOPERATIVE DIAGNOSES: 1. Degenerative joint disease, left knee. 2. Degenerative joint disease, right knee. PROCEDURES: 1. Unicompartmental arthroplasty, medial compart ment, left knee. 2. Cortisone injection, right knee. SURGEON: Catracho Medel MD STUDIO COUCH FRAME BUILDER: Indra Abebe MED ADMIN/ARCHITECTURE DRAFTER ANESTHESIA: General anesthesia. ESTIMATED BLOOD LOSS: 100 mL. DRAINS: None. SPECIMENS: None. COMPLICATIONS: None. INDICATIONS FOR SURGERY: Left knee pain. Treatment options were discussed with the patient who voiced understanding of the options and the planned procedure. She signed surgical consent informing her of the risk of infection, damage to nerves or blood vessels with loss of fun ction, mechanical failure or loosening with need for revision surgery, blood clots poss ibly going to the lungs, possibly resulting in . These issues were d iscussed with the patient in the office prior to surgery. No warranty or guar antee as to the outcome was made. FINDINGS: Severe arthritis with eburnated bone i n the medial compartment with marginal osteophytes along the medial femoral co ndyle. ACL intact. Articular cartilage intact in the late ral compartment. 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 PATIENT NAME: JAI SHIN ACCOUNT #: Y [id number] IMPLANTS: Shiva [employer] size C femoral component, s ize 2 tibial component, 11 mm tibial polyethylene insert. PROCEDURE IN DETAIL: After the patient was prope rly identified and all of her questions were answered in the preoperative hold ing area prior to any administration of sedatives or anesthesia, the appropriate extremity was marked under the direction of the patient and w ith the patient's consent. The patient then received some sedation under the ca re of the anesthesia team, was brought to the operating room where a timeout wa s performed that included confirmation of the appropriately signed surgical con sent, the appropriate side was marked, the patient's identity was confirmed, it was con firmed that all necessary surgical instruments were available and had been appropriately sterilized and that all potentially necessa ry implants were also available. Each member of the surgical team introduced themselves including th eir role in the operative procedure. The timeout was initiated by the surgeon and led by the circulating nurse in the operating room. Following t he timeout, the surgical procedure was begun. A second timeout had been performed prior to the surgical timeout before induction of anesthesia along with the anesthesi a team. Cortisone injection was administered per the pat ient's right knee. The right knee was sterilely prepped using alcohol swabs. The right knee was then injected in a sterile manner via a medial subpatellar approach using an 18-gauge needle. An 80 mg of Depo-Medrol had been mixed w ith 4 mL of normal saline. It was confirmed that both components were sterile and the dates on the vials indicated that they had not . The injecti on was administered with a 1.5-inch length 18-gauge diameter needle. Intraa rticular placement of the injection was confirmed by t actile feel when the capsule was punctured and lack of resistance when the injection was per formed. A Band-Aid was placed over the site of the injection. The left leg was then prepped and draped sterile ly. A tourniquet was not used for left knee arthroplasty. A sterile to urniquet was available in the room for placement if necessary should any excessive blee ding be encountered. An anterior longitudinal incision extending from th e superomedial pole of the patella to the medial base of the tibial tubercle was carried through skin and subcutaneous tissues. Hemostasis was then obtain ed using electrocautery. The capsule was incised along the medial border of t he patella and hemostasis was again obtained with electrocautery. Care was tenisha en to protect the articular cartilage and the ACL during exposure of the med ial compartment. After the medial compartment was adequ ately exposed and hemostasis was obtained, the knee was carefully inspected to determine whether pro ceeding with unicompartmental arthroplasty of the medial c ompartment was appropriate or not. It was confirmed that the ACL was intact as recorded in the surgi loida findings. It was also confirmed that the articular cartilage in the la teral compartment and the visualized anterior horn of the lateral meniscus was intact. Chondromalacic changes in the patellofemoral compartment were n oted and recorded in the surgical findings in this operative report. Deci james was made to proceed with unicompartmental arthroplasty. The tibial cutting guide was placed on the leg. The distal arm was centered over the tibia and appropriate alignment was con firmed. The tibial cutting guide was positioned so that an 8 to 10 mm resection of the proximal tibia would be resected. A single long screw pin was used t o secure the cutting guide to the tibia. The reciprocating saw was the n used to carefully incise the lateral PATIENT NAME: JAI SHIN aspect of the medial tibial plateau along the ma rgin of the insertion of the anterior cruciate ligament, making the dissection of the tibial plateau as large as possible. Retractors were placed to c arefully protect the medial collateral ligament as the proximal tibial plateau was then resected using an oscillating saw. The proximal portion of the cutting guide w as then removed as the wafer was removed from the proximal tibial plateau. It was confirmed that a minimum of 8 mm of thickness was resected using the spacer blocks. When 8 to 10 mm had been resected, the tibial cutting guide was removed. It should be noted that a single screw pin was placed as proximal and medial as possible ____ to minimize the risk of fracture of the proximal tibia. Attention was then turned to resecting the dista l femur using the "cutting block" technique. The appropriate 8 or 10 mm thi ckness resection guide was placed with the knee in extension and retractors were carefully placed to protect the medial and poste rior structures as well as the wafer from the distal femoral resection was remove d and the extension gap was checked with the spacer blocks. The medial femoral condylar resection wa s finished as needed under direct visualization. The knee was then flexed a nd attention was turned to preparing the femur for the femoral implant. The femoral implant was sized using the femoral cutting guides until the guide when placed against the posterior femoral condyle was within 3 to 4 mm o f the superior portion of the resected medial femoral condyle, but no more, an d did not overhang medial and laterally. The appropriately sized cutting guide was then secured to the distal femur using 3 screw pins. The peg holes were then drilled in the distal femur. The posterior femoral condyle was then resected as was the chamfer cut. The femoral drill guide was then removed as were the resected pieces of bone from the femur. The medial meniscus was then excised under direct visualization. The femoral trial was placed and a trial reducti on was performed using spacer blocks. It was confirmed that the flexion and ex tension gaps were well balanced. Additional trimmin g of the distal femur was performed carefully under direct visualization as needed to achieve exact balance of the flexion and extension gaps. When the gaps were bhaskar braxton, attention was turned to preparing the proximal tibia. The proximal tibia was sized initially u sing the measuring device to determine the anterior-posterior dimension. The tibial wan ds were then used to size the medial and lateral dimension. The largest size i mplant that obtained cortical contact without significant overhang was chosen. The anterior-posterior relationship of the trial to the tibia w as marked and the tibial cutting guide was then placed and secured using a sing le short screw pin. The peg holes were then drilled under direct visualization. The tib ial cutting guide was then removed. Any sclerotic areas of bone wer e drilled using a short drill bit with a built-in stop to facilitate cement interdigita tion. The knee was then carefully irrigated as 1 batch of CMW ce ment mixed with 1 gm of vancomycin was mixed on the back table. The implants were place d in sealed bags in hot water to preheat the implants to improve cement leblanc t o the implant. A damp Ray-Tanika was placed in the posterior aspect of the knee a nd along the medial border to allow removal of cement from the posteri or compartment of the knee. The distal femur and proximal tibia wer e carefully cleaned of all blood and fat using pulse lavage and then were carefully dried using Ray-T ec. When the cement was slightly doughy, it was fing er packed into the proximal tibia and also placed on the undersurface of the tibial component, which was then pressed and subsequently impacted into place. Care was taken to hold the tibial implant flush with the tibia while a ny excess cement was removed from the posterior and PATIENT NAME: JAI SHINGAL ACCOUNT #: Y [id number] medial aspects of the knee joint. A similar proc edure was then performed for the femoral implant. The tibial polyethylene ins ert was then placed into the tibia and impacted into place. Any excess cement was again removed. The knee was taken through a range of motion and it was confirmed that the implants were stable and the flexion and extension gaps were w ell balanced. Periarticular block was then performed using 0.5% ropivacaine with epinephrine. The knee was then soaked wit h dilute Betadine for approximately 90 seconds. The knee was then carefully lavaged using pulsatile lavage. The capsule was repaired using #1 Vicryl. The subcutaneo us tissues were meticulously closed in layers using 0 and 2-0 Vicryl. The skin was clos ed using 3-0 nylon. Sterile bandages were then placed followed by co mpressive bandage that included 6-inch Claudio bandages from toes to thigh. POSTOPERATIVE PLAN: Weightbearing and range of m otion as tolerated. Dictated By: Catracho Medel MD WT: OP:LINDSAY/TERRI/NTS Conf#: [id number]/DID#: [id number] Authenticated by Catracho Medel MD On 11:22:30 AM at 1122 PATIENT NAME: JAI SHIN ACCOUNT #: Y [id number] 2018-03-27 13:09:00-00:00 [facility] ([facility]) Brief Op Note REPORT#:[id number] REPORT STATUS: Signed DATE:03/27/18 TIME: 1309 PATIENT: JAI SHIN UNIT #: [id number] ROOM/BED: [place] [id number] : 43 AGE: 72 SEX: F ATTEND: Arvind Medel MD ADM AUTHOR: Catracho Medel MD * ALL edits or amendments must be made on the [employer]/computer document * Op/Inv Proc Note - Brief Pre-procedure diagnosis: djd lt knee Post-procedure diagnosis: same as pre procedure dx Procedures performed: uka lt med Primary Surgeon: trang Senior [employer]oplesoft Developer(s): jose Anesthesia: general anesthesia Findings: djd Complications: none Estimated blood loss in ml's: 100cc Specimens removed/altered: none at 1310 RPT #:[id number] END OF REPORT
--- NOTE | 2022-08-02 13:42 | RAD REPORT ---
EXAM DESCRIPTION: CT - Head Brain Wo Cont - 08/02/2022 1:35 pm CLINICAL HISTORY: DIZZINESS Headache, hypertension COMPARISON: No comparisons TECHNIQUE: All CT scans are performed using dose optimization technique as appropriate and may inclu de automated exposure control or mA/KV adjustment according to patient size. FINDINGS: No intracranial hemorrhage, hydrocephalus or extra-axial fluid collection.Mild brain atrop hy.No areas of brain edema or evidence of midline shift. The paranasal sinuses and mastoids are clear. The calvarium is intact. IMPRESSION: No acute intracranial abnormality.
[2022-08-02] MEDS ORDERED: NA CHLORIDE 0.9% 1,000 ML ONE (13:46)
[2022-08-02] MEDS ORDERED: FAMOTIDINE 20 MG/2 ML VIAL IV ONE (13:46)
--- NOTE | 2022-08-02 13:52 | RAD REPORT ---
EXAM DESCRIPTION: RAD - Chest Single View - 08/02/2022 1:46 pm CLINICAL HISTORY: COUGH Chest pain. COMPARISON: Chest Pa And Lat (2 Views) dated 07/01/2021; CHEST PA AND LAT 2 VIEW dated 12/01/2009; CHES T PA AND LAT 2 VIEW dated 08/20/2005 FINDINGS: Portable technique limits examination quality. The lungs are grossly clear. The heart is normal in size. No displaced fractures. IMPRESSION: No acute intrathoracic process suspected.
[2022-08-02 14:10] LABS: Absolute Lymphocytes (CBC) 2.4 K/uL (0.7-4.9); Hematocrit 40.7 % (36.0-45.0); Lymphocytes % 29.8 % (15.3-44.8); MCV 89.6 fL (80-100); MPV 8.3 fL (7.6-11.3); RBC Red Blood Cell Count 4.54 M/uL (3.86-4.86)
[2022-08-02 14:35] LABS: Protime INR 0.93
[2022-08-02 14:41] LABS: Albumin 3.5 g/dL (3.4-5.0); Bilirubin Direct 0.1 mg/dL (0-0.2); Bilirubin Indirect, Calculated 0.5 mg/dL (0.2-0.8); Bilirubin Total 0.6 mg/dL (0.2-1.0); Magnesium 2.3 mg/dL (1.6-2.4); Potassium 3.8 mEq/L (3.5-5.1); Protein, Total 7.3 g/dL (6.4-8.2); Troponin High Sensitivity 4.9 pg/mL (<58.9)
[2022-08-02 14:44] LABS: Thyroid Stimulating Hormone 5.66 uIU/mL (0.358-3.740)
[2022-08-02 15:08] LABS: Specific Gravity 1.009 (1.005-1.030); Urine Bilirubin NEGATIVE (Negative); Urine Blood Negative (Negative); Urine Clarity Clear (Clear); Urine Color Colorless (Yellow); Urine Glucose NEGATIVE (Negative); Urine Protein NEGATIVE (Negative); Urine Urobilinogen Normal (Normal)
[2022-08-02] MEDS ORDERED: MECLIZINE HCL 12.5 MG TAB ONE (15:36)
[2022-08-02] MEDS ORDERED: ONDANSETRON 4 MG/2 ML VIAL ONE (15:36)
[2022-08-02] MEDS ORDERED: ASPIRIN EC 81 MG TAB PO ONE (15:36)
[2022-08-02] MEDS ORDERED: FOLIC ACID 5 MG/ML VIAL ONE (15:37)
--- NOTE | 2022-08-02 15:52 | RAD REPORT ---
EXAM DESCRIPTION: MRI - Brain Wo Cont - 08/02/2022 3:41 pm CLINICAL HISTORY: Dizziness;TIA Headache, drowsiness COMPARISON: Head Brain Wo Cont dated 08/02/2022 TECHNIQUE: Multi-sequence, multiplanar MR imaging of the brain was performed without contrast. FINDINGS: No intracranial hemorrhage, hydrocephalus or extra-axial fluid collections.Mild periventri cular chronic microvascular ischemic changes. No edema or shift of midline structures. No findings to suspect brain mass. DWI is negative for acute CVA. Midline structures are normally formed. Mastoid air cells and paranasal sinuses are clear. Upper cervical canal stenosis. IMPRESSION: No acute process identified. No acute CVA. Spinal canal stenosis noted in the upper cervical spine. This is incompletely assessed.
--- NOTE | 2022-08-02 16:11 | ER ---
Nurse's Notes [facility] [place] Name: Genevieve Wyatt Age: 76 yrs Sex: Female : 1945 Arrival Date: 08/02/2022 Time: 13:21 Bed 7 Private MD: Diagnosis: Benign paroxysmal vertigo, unspecified ear;Chest pain, unspecified;Essential (primary) hypertension Presentation: 08/02 13:24 Chief complaint: EMS states: DIZZINESS AND HTN SINCE LAST PM. Coronavirus screen: At bp this time, the client does not indicate any symptoms associated with coronavirus-19. Ebola Screen: No symptoms or risks identified at this time. Initial Sepsis Screen: Does the patient meet any 2 criteria? No. Patient's initial sepsis screen is negative. Does the patient have a suspected source of infection? No. Patient's initial sepsis screen is negative. Risk Assessment: Do you want to hurt yourself or someone else? Patient reports no desire to harm self or others. Onset of symptoms was August 01, 2022 at 21:00. Care prior to arrival: IV initiated. 20 GA, in the left antecubital area, Glucose check: 122. 13:24 Method Of Arrival: EMS: [facility] bp 13:24 Acuity: ELIZABETH 3 bp Triage Assessment: 13:25 General: Appears in no apparent distress. Behavior is cooperative, appropriate for age, bp anxious. Pain: Complains of pain in head. EENT: Reports SINUS PAIN. Neuro: Level of Consciousness is awake, alert, obeys commands, Oriented to Appropriate for age. Cardiovascular: Rhythm is sinus rhythm. Respiratory: No deficits noted. GI: No signs and/or symptoms were reported involving the gastrointestinal system. : No signs and/or symptoms were reported regarding the genitourinary system. Derm: No deficits noted. Musculoskeletal: No deficits noted. Historical: - Allergies: 13:25 No Known Allergies; bp - Home Meds: 13:25 famotidine 40 mg oral tablet daily [Active]; fenofibrate oral [Active]; Zetia 10 mg bp Oral tablet daily [Active]; Metoprolol Tartrate Oral [Active]; aspirin 81 mg Oral capsule daily [Active]; - PMHx: 13:25 Hypertensive disorder; Hypercholesterolemia; bp - Immunization history:: Adult Immunizations up to date. - Social history:: Smoking status: Patient reports the use of cigarette tobacco products. Screenin:34 [facility] ED Fall Risk Assessment (Adult) History of falling in the last 3 months, bp including since admission No falls in past 3 months (0 pts). Abuse screen: Denies threats or abuse. Denies injuries from another. Nutritional screening: No deficits noted. Tuberculosis screening: No symptoms or risk factors identified. Assessment: 13:34 General: SEE TRIAGE NOTE. bp 15:24 Reassessment: No changes from previously documented assessment. Patient is alert, bp oriented x 3, equal unlabored respirations, skin warm/dry/pink. 16:20 Reassessment: PT RETURNED FROM MRI. bp Vital Signs: 13:24 BP 178 / 88; Pulse 72; Resp 16; Temp 98; Pulse Ox 100% ; bp 14:00 BP 163 / 98; Pulse 57; Resp 16; Pulse Ox 98% ; ko1 15:22 BP 166 / 89; Pulse 64; Resp 16; Pulse Ox 97% ; bp 16:18 BP 158 / 73; Pulse 57; Resp 16; Pulse Ox 100% ; bp Shayna Coma Score: 15:39 Eye Response: spontaneous(4). Motor Response: obeys commands(6). Verbal Response: hany oriented(5). Total: 15. NIH Stroke Scale Scores: 15:30 NIHSS Score: 0 hany ED Course: 13:23 Patient arrived in ED. bp 13:24 Cruz Capellan MD is Attending Physician. hany 13:24 Triage completed. bp 13:30 Maintain EMS IV. Dressing intact. Good blood return noted. Site clean \T\ dry. Gauge \T\ bp site: 20 GA LEFT AC. 13:34 Arm band placed on. bp 13:34 Patient has correct armband on for positive identification. Bed in low position. Call bp light in reach. Side rails up X2. Adult w/ patient. 13:37 CT Head Brain wo Cont In Process Unspecified. EDMS 13:48 XRAY Chest (1 view) In Process Unspecified. EDMS 14:34 Sheila Molina, SHANTELLE is Primary Nurse. ko1 15:36 Brain Wo Cont In Process Unspecified. EDMS 15:54 US Carotid Artery Bilateral In Process Unspecified. EDMS 16:08 Paul Abbott is Hospitalizing Provider. hany 22:27 No provider procedures requiring assistance completed. jj7 22:28 Patient admitted, IV remains in place. j Administered Medications: 13:59 Drug: NS 0.9% IV 500 ml Route: IV; Rate: bolus; Site: left antecubital; bp 13:59 Drug: NS 0.9% IV 1000 ml Route: IV; Rate: 125 ml/hr; Site: left antecubital; bp 13:59 Drug: Famotidine IVP 20 mg Route: IVP; Site: left antecubital; bp 16:17 Drug: Aspirin PO Chewable Tablet 81 mg Route: PO; bp 16:18 Drug: Meclizine PO 25 mg Route: PO; bp 16:18 Drug: Ondansetron IVP 4 mg Route: IVP; Site: left antecubital; bp 16:18 Drug: foLIC Acid IVPB 1 mg Route: IVPB; Site: left antecubital; bp 16:35 Drug: Clopidogrel PO 75 mg Route: PO; bp Medication: 22:28 VIS not applicable for this client. j Outcome: 16:11 Decision to Hospitalize by Provider. hany 22:27 Admitted to Med/surg accompanied by tech, via wheelchair, room 230, [facility] CARLY RN 22:27 Condition: good 22:56 Patient left the ED. j NIH Stroke Scale - NIH Stroke Score Date: 08/02/2022 Time: 15:30 Total Score = 0 10. Dysarthria (speech clarity - read or repeat words) - 0(Normal) 11. Extinction and Inattention (visual/tactile/auditory/spatial/personal) - 0(No abnormality) 1a. Level of Consciousness (LOC) - 0(Alert) 1b. Level of Consciousness (LOC) (Month \T\ Age) - 0(Both) 1c. LOC Commands (Open \T\ Closes Eyes/Library Customer Service Clerk) - 0(Both) 2. Best Gaze (Lateral Gaze Paresis) - 0(Normal) 3. Visual Field Loss - 0(No visual loss) 4. Facial Palsy - 0(Normal) 5a. Left Arm: Motor (10-second hold) - 0(No drift) 5b. Right Arm: Motor (10-second hold) - 0(No drift) 6a. Left Leg: Motor (5-second hold - always test supine) - 0(No drift) 6b. Right Leg: Motor (5-second hold - always test supine) - 0(No drift) 7. Limb Ataxia (finger/nose \T\ heel/isidro - test with eyes open) - 0(Absent) 8. Sensory Loss (pinprick arms/legs/face) - 0(Normal) 9. Best Language: Aphasia (description/naming/reading) - 0(No aphasia) Initials: hany Signatures: Dispatcher [employer] EDCruz Pat MD MD cha Peltier, Brian, RN RN bp Sheila Molina RN RN ko1 Xiang Garcia RN RN [email or web address] Corrections: (The following items were deleted from the chart) 15:24 13:20 Maintain EMS IV. Dressing intact. Good blood return noted. Site clean \T\ bp dry. Gauge \T\ site: 20 GA LEFT AC. bp
--- NOTE | 2022-08-02 16:11 | EDPHYS ---
Physician Documentation [facility] [place] Name: Genevieve Wyatt Age: 76 yrs Sex: Female : 1945 Arrival Date: 08/02/2022 Time: 13:21 Bed 7 Private MD: ED Physician Cruz Capellan HPI: 08/02 15:28 This 76 yrs old Female presents to ER via EMS with complaints of Dizziness. hany 15:28 The patient presents with dizziness, generalized weakness. Onset: The symptoms/episode hany began/occurred 1 day(s) ago, at 00:00. Context: occurred at home, occurred while the patient was sleeping. Modifying factors: The symptoms are alleviated by nothing, the symptoms are aggravated by movement of head. Associated signs and symptoms: The patient has no apparent associated signs or symptoms. Severity of symptoms: At their worst the symptoms were mild moderate in the emergency department the symptoms have improved mildly. Patient's baseline: Neuro: alert and fully oriented. The patient has not experienced similar symptoms in the past. Historical: - Allergies: 13:25 No Known Allergies; bp - Home Meds: 13:25 famotidine 40 mg oral tablet daily [Active]; fenofibrate oral [Active]; Zetia 10 mg bp Oral tablet daily [Active]; Metoprolol Tartrate Oral [Active]; aspirin 81 mg Oral capsule daily [Active]; - PMHx: 13:25 Hypertensive disorder; Hypercholesterolemia; bp - Immunization history:: Adult Immunizations up to date. - Social history:: Smoking status: Patient reports the use of cigarette tobacco products. ROS: 15:30 Constitutional: Negative for fever, chills, and weight loss, Eyes: Negative for injury, hany pain, redness, and discharge, ENT: Negative for injury, pain, and discharge, Neck: Negative for injury, pain, and swelling, Respiratory: Negative for shortness of breath, cough, wheezing, and pleuritic chest pain, Abdomen/GI: Negative for abdominal pain, nausea, vomiting, diarrhea, and constipation, Back: Negative for injury and pain, : Negative for injury, bleeding, discharge, and swelling, MS/Extremity: Negative for injury and deformity, Skin: Negative for injury, rash, and discoloration, Psych: Negative for depression, anxiety, suicide ideation, homicidal ideation, and hallucinations, Allergy/Immunology: Negative for hives, rash, and allergies, Endocrine: Negative for neck swelling, polydipsia, polyuria, polyphagia, and marked weight changes, Hematologic/Lymphatic: Negative for swollen nodes, abnormal bleeding, and unusual bruising. 15:30 Cardiovascular: Positive for chest pain. 15:30 Neuro: Positive for dizziness. Exam: 15:30 Constitutional: This is a well developed, well nourished patient who is awake, alert, hany and in no acute distress. Head/Face: Normocephalic, atraumatic. Eyes: Pupils equal round and reactive to light, extra-ocular motions intact. Lids and lashes normal. Conjunctiva and sclera are non-icteric and not injected. Cornea within normal limits. Periorbital areas with no swelling, redness, or edema. ENT: Nares patent. No nasal discharge, no septal abnormalities noted. Tympanic membranes are normal and external auditory canals are clear. Oropharynx with no redness, swelling, or masses, exudates, or evidence of obstruction, uvula midline. Mucous membranes moist. Neck: Trachea midline, no thyromegaly or masses palpated, and no cervical lymphadenopathy. Supple, full range of motion without nuchal rigidity, or vertebral point tenderness. No Meningismus. Chest/axilla: Normal chest wall appearance and motion. Nontender with no deformity. No lesions are appreciated. Cardiovascular: Regular rate and rhythm with a normal S1 and S2. No gallops, murmurs, or rubs. Normal PMI, no JVD. No pulse deficits. Respiratory: Lungs have equal breath sounds bilaterally, clear to auscultation and percussion. No rales, rhonchi or wheezes noted. No increased work of breathing, no retractions or nasal flaring. Abdomen/GI: Soft, non-tender, with normal bowel sounds. No distension or tympany. No guarding or rebound. No evidence of tenderness throughout. Back: No spinal tenderness. No costovertebral tenderness. Full range of motion. Female : Normal external genitalia. Skin: Warm, dry with normal turgor. Normal color with no rashes, no lesions, and no evidence of cellulitis. MS/ Extremity: Pulses equal, no cyanosis. Neurovascular intact. Full, normal range of motion. Psych: Awake, alert, with orientation to person, place and time. Behavior, mood, and affect are within normal limits. 15:30 Neuro: Orientation: is normal, appropriate for stated age, no acute changes, Mentation: is normal, appropriate for stated age, no acute changes, Memory: is normal, appropriate for stated age, no acute changes, Cranial nerves: grossly normal, is grossly normal based on the patient's age, no acute changes, Cerebellar function: is grossly normal, is grossly normal based on the patient's age, no acute changes, Motor: is normal, is grossly normal based on the patient's age, no acute changes, moves all fours, strength is normal, Sensation: no obvious gross deficits, Gait: not tested. Deep tendon reflexes are 2+ (normal) in the bilateral brachioradialis, bicep, tricep and patellar and Achilles tendons, Babinski testing is normal, seizure activity, is not displayed by the patient. 15:47 ECG was reviewed by the Attending Physician. hany Vital Signs: 13:24 BP 178 / 88; Pulse 72; Resp 16; Temp 98; Pulse Ox 100% ; bp 14:00 BP 163 / 98; Pulse 57; Resp 16; Pulse Ox 98% ; ko1 15:22 BP 166 / 89; Pulse 64; Resp 16; Pulse Ox 97% ; bp 16:18 BP 158 / 73; Pulse 57; Resp 16; Pulse Ox 100% ; bp NIH Stroke Scale Scores: 15:30 NIHSS Score: 0 hany [place] Coma Score: 15:39 Eye Response: spontaneous(4). Motor Response: obeys commands(6). Verbal Response: hany oriented(5). Total: 15. MDM: 13:24 Patient medically screened. hany 15:39 Differential diagnosis: cluster headache, cerebral vascular accident, abnormal EKG, hany acute myocardial infarction, acute pericarditis, anxiety, chest wall pain, congestive heart failure Cholelithiasis gastritis, hiatal hernia, pancreatitis, peptic ulcer disease, pneumonia, pulmonary embolus, stable angina, unstable angina, hypertensive headache, hypoglycemia, hyponatremia, intracerebral hemorrhage, neoplasm, subarachnoid bleed, subdural hematoma, temporal arteritis, tension headache, traumatic injuries. HEART Score: History: Slightly Suspicious (0), ECG: Normal (0). Differential diagnosis: cardiac arrhythmia. The patient was given aspirin in the Emergency Department. CHEO Risk Score: 1 - patient's age is greater or equal to 65 years, 1 - Three or more CAD risk factors, [Family Hx], [HTN], [Elevated Cholesterol], 1- Known CAD, 1 - ASA use in past 7 days. Data reviewed: vital signs, nurses notes, lab test result(s), EKG, radiologic studies, CT scan, doppler, MRI, plain films. Consideration of Admission/Observation Escalation of care including admission/observation considered. I considered the following discharge prescriptions or medication management in the emergency department Medications were administered in the Emergency Department. See MAR. Independent interpretation of the following test(s) in the Emergency Department EKG: See my EKG interpretation above. Test considered but Not performed: CT: no cta head/neck. Historians other than the Patient: Family Member: son in law, . Care significantly affected by the following chronic conditions: Hypertension, Obesity, hypercholesterol. Counseling: I had a detailed discussion with the patient and/or guardian regarding: the historical points, exam findings, and any diagnostic results supporting the discharge/admit diagnosis, the presence of at least one elevated blood pressure reading (>120/80) during this emergency department visit, lab results, radiology results, the need for further work-up and treatment in the hospital. 08/02 13:26 Order name: Basic Metabolic Panel; Complete Time: 15:05 hany 08/02 13:26 Order name: CBC with Diff; Complete Time: 14:49 hany 08/02 13:26 Order name: LFT's; Complete Time: 15:05 hany 08/02 13:26 Order name: Magnesium; Complete Time: 15:05 hany 08/02 13:26 Order name: NT PRO-BNP; Complete Time: 15:05 08/02 13:26 Order name: PT-INR; Complete Time: 14:49 08/02 13:26 Order name: Troponin HS; Complete Time: 15:05 hany 08/02 13:26 Order name: TSH; Complete Time: 15:05 hany 08/02 13:26 Order name: Urinalysis w/ reflexes; Complete Time: 15:27 hany 08/02 13:26 Order name: Lipase; Complete Time: 15:05 hany 08/02 14:46 Order name: T4 Free; Complete Time: 15:05 EDMS 08/02 16:52 Order name: Troponin HS: NOW hany 08/02 17:20 Order name: Magnesium [facility]MI 08/02 17:20 Order name: Phosphorus EDMS 08/02 17:21 Order name: Urinalysis w/ reflexes EDMI 08/02 17:21 Order name: Basic Metabolic Panel [facility] 08/02 17:21 Order name: Basic Metabolic Panel [facility] 08/02 17:21 Order name: CBC with Automated Diff [facility]MI 08/02 17:21 Order name: CBC with Automated Diff [facility] 08/02 17:21 Order name: Lipid Profile [facility] 08/02 17:21 Order name: Lipid Profile [facility] 08/02 17:23 Order name: Troponin High Sensitivity [facility] 08/02 17:23 Order name: Troponin High Sensitivity [facility] 08/02 13:26 Order name: XRAY Chest (1 view); Complete Time: 14:49 [facility] 08/02 13:27 Order name: CT Head Brain wo Cont; Complete Time: 14:49 [facility] 08/02 15:03 Order name: US Carotid Artery Bilateral; Complete Time: 17:53 [facility] 08/02 15:36 Order name: Brain Wo Cont; Complete Time: 16:04 [facility] 08/02 16:33 Order name: Echo without Doppler (2D) [facility] 08/02 16:52 Order name: Echo w/ Doppler [facility] 08/02 13:26 Order name: EKG; Complete Time: 13:27 [facility] 08/02 17:20 Order name: CONS Physician Consult [facility] 08/02 17:20 Order name: Heart Healthy [facility] 08/02 13:26 Order name: Cardiac monitoring; Complete Time: 14:00 [facility] 08/02 13:26 Order name: EKG - Nurse/Tech; Complete Time: 14:11 [facility] 08/02 13:26 Order name: IV Saline Lock; Complete Time: 14:00 [facility] 08/02 13:26 Order name: Labs collected and sent; Complete Time: 14:00 [facility] 08/02 13:26 Order name: O2 Per Protocol; Complete Time: 13:35 [facility] 08/02 13:26 Order name: O2 Sat Monitoring; Complete Time: 13:35 [facility] EC:47 Rate is 58 beats/min. Rhythm is regular. QRS Newcomb is Normal. SD interval is normal. QRS hany interval is normal. QT interval is normal. No Q waves. T waves are Normal. T waves are Inverted in leads V1, V3, V4, V5, V6. ST Segment is depressed in leads II, III. Clinical impression: NSR w/ Non-specific ST/T Changes. Interpreted by me. Reviewed by me. Administered Medications: 13:59 Drug: NS 0.9% IV 500 ml Route: IV; Rate: bolus; Site: left antecubital; bp 13:59 Drug: NS 0.9% IV 1000 ml Route: IV; Rate: 125 ml/hr; Site: left antecubital; bp 13:59 Drug: Famotidine IVP 20 mg Route: IVP; Site: left antecubital; bp 16:17 Drug: Aspirin PO Chewable Tablet 81 mg Route: PO; bp 16:18 Drug: Meclizine PO 25 mg Route: PO; bp 16:18 Drug: Ondansetron IVP 4 mg Route: IVP; Site: left antecubital; bp 16:18 Drug: foLIC Acid IVPB 1 mg Route: IVPB; Site: left antecubital; bp 16:35 Drug: Clopidogrel PO 75 mg Route: PO; bp Disposition Summary: 08/02/22 16:11 Hospitalization Ordered Hospitalization Status: Observation hany Provider: Paul Abbott cha Condition: Fair hany Problem: new hany Symptoms: have improved hany Bed/Room Type: Standard hany Location: Telemetry/MedSurg (observation)(08/02/22 21:35) Room Assignment: 230(08/02/22 21:35) Diagnosis - Benign paroxysmal vertigo, unspecified ear hany - Chest pain, unspecified hany - Essential (primary) hypertension hany Forms: - Medication Reconciliation Form hany - SBAR form hany NIH Stroke Scale - NIH Stroke Score Date: 08/02/2022 Time: 15:30 Total Score = 0 10. Dysarthria (speech clarity - read or repeat words) - 0(Normal) 11. Extinction and Inattention (visual/tactile/auditory/spatial/personal) - 0(No abnormality) 1a. Level of Consciousness (LOC) - 0(Alert) 1b. Level of Consciousness (LOC) (Month \T\ Age) - 0(Both) 1c. LOC Commands (Open \T\ Closes Eyes/Pulp House Supervisor) - 0(Both) 2. Best Gaze (Lateral Gaze Paresis) - 0(Normal) 3. Visual Field Loss - 0(No visual loss) 4. Facial Palsy - 0(Normal) 5a. Left Arm: Motor (10-second hold) - 0(No drift) 5b. Right Arm: Motor (10-second hold) - 0(No drift) 6a. Left Leg: Motor (5-second hold - always test supine) - 0(No drift) 6b. Right Leg: Motor (5-second hold - always test supine) - 0(No drift) 7. Limb Ataxia (finger/nose \T\ heel/isidro - test with eyes open) - 0(Absent) 8. Sensory Loss (pinprick arms/legs/face) - 0(Normal) 9. Best Language: Aphasia (description/naming/reading) - 0(No aphasia) Initials: hany Signatures: Dispatcher [employer] EDMS Lara Roman RN RN mw Anderson, Corey, MD MD cha Peltier, Brian RN RN bp Corrections: (The following items were deleted from the chart) 15:36 15:04 MR STROKE PROTOCOL+MRI.RAD.BRZ ordered. EDMS EDMS 18:50 16:11 Telemetry/MedSurg (observation) hany mw 18:50 16:11 hany mw 21:35 18:50 [facility] ER HOLD mw mw 21:35 18:50 ERHOLD- mw mw
--- NOTE | 2022-08-02 16:16 | RAD REPORT ---
EXAM DESCRIPTION: - CP - 08/02/2022 3:53 pm CLINICAL HISTORY: DIZZINESS Headache, drowsiness COMPARISON: No comparisons TECHNIQUE: Real-time sonographic evaluation of both carotid systems was performed. Doppler interroga tion was performed with waveform tracing bilaterally. FINDINGS: Normal high resistance waveforms are noted in both external carotid arteries. The common c arotid arteries and internal carotid arteries show normal low resistance waveforms. Focal small hard plaque right carotid bulb. Peak systolic and end diastolic velocity values and the I CA/CCA ratios are in the non-hemodynamically significant range. Antegrade flow seen in both vertebral arteries. IMPRESSION: Focal small hard plaque right carotid bulb. No evidence of a hemodynamically significant stenosis.
[2022-08-02] MEDS ORDERED: CLOPIDOGREL 75 MG TABLET ONE (16:37)
[2022-08-02] MEDS ORDERED: TRAMADOL HCL 50 MG TAB PO PRN (17:13)
[2022-08-02] MEDS ORDERED: ACETAMINOPHEN 325 MG TABLET PO PRN (17:14)
[2022-08-02] MEDS ORDERED: ONDANSETRON 4 MG/2 ML VIAL IV PRN (17:18)
[2022-08-02] MEDS ORDERED: MECLIZINE HCL 12.5 MG TAB PO PRN (17:21)
--- NOTE | 2022-08-02 17:22 | P.HP ---
Certification for Inpatient Patient admitted to: Observation With expected LOS: <2 Midnights Patient will require the following post-hospital care: None Practitioner: I am a practitioner with admitting privileges, knowledge of patient current condition, hospital course, and medical plan of care. Services: Services provided to patient in accordance with Admission requirements found in Title 42 Section 412.3 of the Code of Federal Regulations Patient History Date of Service: 08/02/22 Reason for admission: Dizziness and Vertigo History of Present Illness: Patient is a 76-year-old female with a past medical history significant for GERD, hyperlipidemia, hypertension, who presents with complaint of dizziness and vertigo onset yesterday. Patient reported that anytime she changes position she starts to experience symptoms. Patient reported that on her way to the ER patient started having chest pain in the right chest area rated as 7/10 in s everity and described as sharp in quality. Patient reported associated signs and symptoms of headache.. Patient denies any other signs or symptoms. Symptoms are aggravated or relieved by nothing. Patient was brought to the hospital for medical evaluation. Allergies No Known Drug Allergies Allergy (Verified 08/03/22 06:20) NKDA Home Medications: Aspirin 1 tab PO DAILY 08/03/22 Diclofenac Sodium [Voltaren] 1 tab PO BID 08/03/22 Ezetimibe [Zetia*] 1 tab PO DAILY 08/03/22 Famotidine 1 tab PO BID 08/03/22 Magnesium Oxide [Magnesium] 1 tab PO DAILY 08/03/22 Metoprolol Succinate [Toprol Xl*] 1 tab PO DAILY 08/03/22 Multivit-Min/FA/Lycopen/Lutein [Centrum Silver Tablet] 1 tab PO DAILY 08/03/22 Triamterene/Hydrochlorothiazid [Triamterene-Hctz 37.5-25 mg Cp] 1 cap PO DAILY 08/03/22 - Past Medical/Surgical History -: HTN -: GERD -: HLD Past Surgical History: Reviewed- Non-Contributory - Family History Family History: Reviewed- Non-Contributory - Social History Smoking Status: Never smoker Alcohol use: Yes CD- Drugs: No Caffeine use: Yes Place of Residence: Home Review of Systems General: Unremarkable Eyes: Unremarkable ENT: Unremarkable Respiratory: Unremarkable Cardiovascular: Chest Pain Gastrointestinal: Unremarkable Genitourinary: Unremarkable Musculoskeletal: Unremarkable Integumentary: Unremarkable Neurological: Other (Dizziness, Vertigo, BLAS) Lymphatics: Unremarkable Physical Examination - Physical Exam General: Alert, In no apparent distress, Oriented x3, Cooperative HEENT: Atraumatic, PERRLA, Mucous membr. moist/pink, EOMI, Sclerae nonicteric Neck: Supple, 2+ carotid pulse no bruit, No LAD, Without JVD or thyroid abnormality Respiratory: Clear to auscultation bilaterally, Normal air movement Cardiovascular: No edema, Regular rate/rhythm, Normal S1 S2 Capillary refill: <2 Seconds Gastrointestinal: Normal bowel sounds, Soft and benign, No tenderness Musculoskeletal: No clubbing, No swelling, No tenderness Integumentary: No rashes, No significant lesion Neurological: Normal speech, Normal strength at 5/5 x4 extr, Normal tone, Normal affect Lymphatics: No axilla or inguinal lymphadenopathy - Studies Laboratory Data (last 24 hrs) 08/02/22 14:00: PT 10.2, INR 0.93 08/02/22 14:00: WBC 7.90, Hgb 13.5, Hct 40.7, Plt Count 287 08/02/22 14:00: Sodium 140, Potassium 3.8, BUN 29 H, Creatinine 1.07 H, Glucose 108 H, Magnesium 2.3, Total Bilirubin 0.6, AST 20, ALT 33, Alkaline Phosphatase 72, Lipase 48 Assessment and Plan - Plan --Vertigo\dizziness. MRI brain unremarkable for any acute intracranial abnormality. Carotid Doppler does not indicate any evidence of carotid artery stenosis. Neurology consulted. Patient placed on meclizine as needed. Will await further recommendations. -- Chest pain. Likely atypical. Serial troponins negative so far. Echocardiogram pending to assess cardiac structures and function. Cardiology consulted. Telemetry to monitor for any significant arrhythmia. We will await further recommendation from life scientists. --Hyperlipidemia. Continue home medications. --GERD. Continue home medication. --Hypertension. Poorly controlled. Continue home medication and hydralazine as needed --CKD 3B. Stable. We will continue to monitor renal functions. --Headache. Tylenol as needed. --DVT prophylaxis with Lovenox subQ. Discharge Plan: Home Plan to discharge in: 48 Hours - Advance Directives Does patient have a Living Will: No Does patient have a Durable POA for Healthcare: Yes - Code Status/Comfort Care Code Status Assessed: Yes Physician Review: Patient Assessed, Agree with Above Assessment and Plan Critical Care: No
[2022-08-02 21:12] LABS: Magnesium 2.2 mg/dL (1.6-2.4); Phosphorus 2.6 mg/dL (2.5-4.9)
[2022-08-03] VITALS: BMI 28.3
[2022-08-03 04:01] LABS: Absolute Lymphocytes (CBC) 3.7 K/uL (0.7-4.9); Lymphocytes % 41.4 % (15.3-44.8); MPV 8.3 fL (7.6-11.3); RBC Red Blood Cell Count 4.01 M/uL (3.86-4.86)
[2022-08-03 04:20] LABS: BUN Blood Urea Nitrogen 28 mg/dL (7-18); Bicarbonate 27 mEq/L (21-32); Glomerular Filtration Rate 63 ml/min (=/>90); Glucose Level 154 mg/dL (74-106); HDL Cholesterol 29 mg/dL (40-60); Potassium 3.6 mEq/L (3.5-5.1); Sodium Level 141 mEq/L (136-145)
[2022-08-03 04:34] LABS: LDL, Direct 139 mg/dL (100-129)
[2022-08-03] MEDS ORDERED: HYDRALAZINE HCL 20 MG/ML VIAL IV PRN (06:26)
--- NOTE | 2022-08-03 06:55 | P.PN ---
Date of Service: 08/03/22 Subjective feeling better today Feels the room has been spinning, 3 episodes since ~2 night ago nauseated yesterday, improving no new / worsening problems ROS: 10 point ROS as noted above, otherwise negative Physical Exam: GEN: Alert, oriented, NAD HEENT: Normal conjunctiva, sclera anicteric CV: Regular rate and rhythm, no edema Pulm: Nonlabored respirations on room air ABD: Soft, nontender, nondistended MSK: No joint tenderness Integumentary: No rashes Neuro: Normal speech, normal affect vitals reviewed Problem List: Vertigo\dizziness Chest pain CKD 3B Hyperlipidemia GERD Hypertension Headache Vertigo\dizziness MRI brain (08/02): unremarkable for any acute intracranial abnormality. CT head (08/02): negative CXR (08/02): negative Carotid Doppler (08/02): no evidence of carotid artery stenosis. Likely BPPV Neurology consulted. meclizine as needed. Chest pain troponins negative x3. monitor on telemetry Echocardiogram pending Cardiology consulted Hyperlipidemia. Continue home medications GERD. Continue home medication Hypertension. Poorly controlled. Continue home medication and hydralazine as needed CKD 3B. Stable. We will continue to monitor renal function Headache. Tylenol as needed. VTE: Lovenox Code: Full Dispo: Home ~2 days
--- NOTE | 2022-08-03 08:23 | P.DS ---
Admission Date: 08/02/22 Discharge Date: 08/03/22 Disposition: ROUTINE DISCHARGE Discharge Condition: GOOD Reason for Admission: Dizziness and Vertigo Consultations: Cardiology - Dr. Giraldo Brief History of Present Illness: 76yo F, PMH: GERD, hyperlipidemia, hypertension, Patient who presents with complaint of dizziness and vertigo onset yesterday. Patient reported that anytime she changes position she starts to experience symptoms. Patient reported that on her way to the ER patient started having chest pain in the right chest area rated as 7/10 in severity and described as sharp in quality. Patient reported associated signs and symptoms of headache.. Patient denies any other signs or symptoms. Symptoms are aggravated or relieved by nothing. Patient was brought to the hospital for medical evaluation. Hospital Course: Problem List: Vertigo\dizziness Chest pain CKD 3B Hyperlipidemia GERD Hypertension Headache Patient presented with dizziness, chest pain and vertigo. Troponins were negative. MRI brain, CT head, were both negative. Cardiology was consulted. Dr. Giraldo did not feel she needed any immediate testing given her normal EKG and negative troponins and recommended an outpatient echocardiogram for completeness. Her symptoms were most consistent with BPPV as they were triggered with movement/change in head position. She was monitored overnight on telemetry without any arrhythmias. BPPV was discussed and recommended patient to try at home Harvey mccormack to help treat the symptoms associated with BPPV. Meclizine as needed if episodes last longer than expected. Follow up with PCP - Dr. Severino. She was recently started on fenofibrate, although not commonly associated with vertigo, recommended to hold this medication for now, and to increase water intake. She reported only drinking up to a glass of water/day. New Prescriptions: Meclizine Hold off on taking fenofibrate until seen by PCP Follow up: Cardiology within 1-2 weeks to f/u for outpatient echocardiogram Neurology within 1 month if needed Physical Exam: GEN: Alert, oriented, NAD HEENT: Normal conjunctiva, sclera anicteric CV: Regular rate and rhythm, no edema Pulm: Nonlabored respirations on room air ABD: Soft, nontender, nondistended MSK: No joint tenderness Integumentary: No rashes Neuro: Normal speech, normal affect Vital Signs/Physical Exam: Temp Pulse Resp BP Pulse Ox 98.4 F 61 16 143/65 H 95 08/03/22 04:00 08/03/22 04:00 08/03/22 04:00 08/03/22 04:00 08/03/22 04:00 Laboratory Data at Discharge: WBC 9.00 thou/uL (4.3-10.9) 08/03/22 03:04 Hgb 12.0 g/dL (12.0-15.0) D 08/03/22 03:04 Hct 36.0 % (36.0-45.0) 08/03/22 03:04 Plt Count 255 thou/uL (152-406) 08/03/22 03:04 PT 10.2 SECONDS (9.5-12.5) 08/02/22 14:00 INR 0.93 08/02/22 14:00 Sodium 141 mEq/L (136-145) 08/03/22 03:04 Potassium 3.6 mEq/L (3.5-5.1) 08/03/22 03:04 BUN 28 mg/dL (7-18) H 08/03/22 03:04 Creatinine 0.93 mg/dL (0.55-1.02) 08/03/22 03:04 Glucose 154 mg/dL (74-106) H 08/03/22 03:04 Phosphorus 2.6 mg/dL (2.5-4.9) 08/02/22 20:45 Magnesium 2.0 mg/dL (1.6-2.4) 08/03/22 03:04 Total Bilirubin 0.6 mg/dL (0.2-1.0) 08/02/22 14:00 AST 20 U/L (15-37) 08/02/22 14:00 ALT 33 U/L (13-56) 08/02/22 14:00 Alkaline Phosphatase 72 U/L (45-117) 08/02/22 14:00 Triglycerides 429 mg/dL (<150) H 08/03/22 03:04 Cholesterol 227 mg/dL (<200) H 08/03/22 03:04 LDL Cholesterol Direct 139 mg/dL (100-129) H 08/03/22 03:04 HDL Cholesterol 29 mg/dL (40-60) L 08/03/22 03:04 Cholesterol/HDL Ratio 7.83 08/03/22 03:04 Lipase 48 U/L (13-75) 08/02/22 14:00 Home Medications: Aspirin 1 tab PO DAILY 08/03/22 Diclofenac Sodium [Voltaren] 1 tab PO BID 08/03/22 Ezetimibe [Zetia*] 1 tab PO DAILY 08/03/22 Famotidine 1 tab PO BID 08/03/22 Magnesium Oxide [Magnesium] 1 tab PO DAILY 08/03/22 Meclizine HCl [Motion Sickness Relief] 25 mg PO Q6H PRN #20 tab.chew 08/03/22 Metoprolol Succinate [Toprol Xl*] 1 tab PO DAILY 08/03/22 Multivit-Min/FA/Lycopen/Lutein [Centrum Silver Tablet] 1 tab PO DAILY 08/03/22 Triamterene/Hydrochlorothiazid [Triamterene-Hctz 37.5-25 mg Cp] 1 cap PO DAILY 08/03/22 New Medications: Meclizine HCl [Motion Sickness Relief] 25 mg PO Q6H PRN #20 tab.chew PRN Reason: Dizziness Physician Discharge Instructions: Patient presented with dizziness, chest pain and vertigo. Troponins were negative. MRI brain, CT head, were both negative. Cardiology was consulted. Dr. Giraldo did not feel she needed any immediate testing given her normal EKG and negative troponins and recommended an outpatient echocardiogram for completeness. Her symptoms were most consistent with BPPV as they were triggered with movement/change in head position. She was monitored overnight on telemetry without any arrhythmias. BPPV was discussed and recommended patient to try at home Harvey manuevers to help treat the symptoms associated with BPPV. Meclizine as needed if episodes last longer than expected. Follow up with PCP - Dr. Severino. She was recently started on fenofibrate, although not commonly associated with vertigo, recommended to hold this medication for now, and to increase water intake. She reported only drinking up to a glass of water/day. New Prescriptions: Meclizine Hold off on taking fenofibrate until seen by PCP Follow up: Cardiology within 1-2 weeks to f/u for outpatient echocardiogram Neurology within 1 month if needed Followup: Gonzalo Giraldo MD [ACTIVE - CAN ADMIT] - Kevyn Severino MD [Primary Care Provider] - Time spent managing pt's care (in minutes): 45
[2022-08-03 08:49] VITALS: BP 153/67; TEMP 98.3
[2022-08-03] MEDS ORDERED: ENOXAPARIN 40 MG/0.4 ML SQ SCH (09:00)
[2022-08-03] MEDS ORDERED: POTASSIUM CL SA 10 MEQ TAB PO ONE (09:00)
[2022-08-03] MEDS ORDERED: ASPIRIN 81 MG CHEWABLE TABLET PO SCH (09:00)
[2022-08-03 09:49] VITALS: O2SAT 98
--- NOTE | 2022-08-04 07:21 | EKG ---
Test Date: 2022-08-02 Test Time: 14:06:43 [employer] Fruit: LORETTA MEASUREMENT RESULTS: Intervals: Rate: 58 SC: 172 QRSD: 74 QT: 420 QTc: 412 Wilmot: P: 53 SC: 172 QRS: 30 T: 5 INTERPRETIVE STATEMENTS: Sinus bradycardia Low voltage QRS Borderline ECG No previous ECG available for comparison Electronically Signed On 08-04-22 07:15:11 CDT by Gonzalo Giraldo
--- NOTE | 2022-08-04 12:47 | CON ---
Came in with vertigo, was admitted on 08/02/[address] Gonzales and Dr. Abbott. History Of Present Illness: Ms. Wyatt is 76. Has had a history of hypertension, gastroesophageal refl ux disease, and dyslipidemia. She sees Dr. Severino. Came in with vertigo, very little chest tightne ss, nonexertional. No nausea, vomiting, diaphoresis, PND, orthopnea, fever, or chills. She has rule d out for an LA. EKG is normal. Chest x-ray is unremarkable. Troponin was negative. Her triglycer erika, however, was 429. Cholesterol of 227, and HDL of 29. Past Medical History: As stated above. Allergies: NONE. Review of Systems: Negative. Social History: Negative. Family History: Positive. Medications: At home include aspirin, fenofibrate, Zetia, Pepcid, Toprol, and triamterene with hydro chlorothiazide. Physical Examination: Vital Signs: Stable, afebrile. HEENT: Negative. Neck: Supple with no bruit. Chest: Clear. Cardiac: Revealed a regular rhythm and rate. No murmurs, gallops, or rubs. Abdomen: Benign. Extremities: Revealed no clubbing, cyanosis, or edema. Diagnostic Data: As stated earlier. Impression And Plan: 1.Vertigo. 2.Atypical chest pain. 3.Hypertension. 4.Dyslipidemia. 5.Gastroesophageal reflux disease. I would personally increase her Toprol, taper off the triamteren e with hydrochlorothiazide. Echo is pending, carotid is pending. It would be good to have her do an outpatient Lexiscan because of her risk factors. She can go home whenever it is okay with admitting hospitalist after the echo was done. DB/[email or web address] Voice ID: [id number] Report ID: [id number]
== END 2022-08-03 09:49 | disposition home or self-care (01) ==
LOC: ER 13:21 → ERHOLD 17:11 → 2ND 22:29
PROVIDERS: ADMIT Internal Medicine; ATTEND Hospitalist
DX: R42 Dizziness and giddiness (principal); R07.89 Other chest pain; K21.9 Gastro-esophageal reflux disease without esophagitis; E78.5 Hyperlipidemia, unspecified; I10 Essential (primary) hypertension; R07.9 Chest pain, unspecified; N18.32 Chronic kidney disease, stage 3b; R51.9 Headache, unspecified
CPT/HCPCS: 93005; 85025 ×2; 80048 ×2; 36415; 83721; 83735 ×3; 84100; 85610; 80061; 80076; 84443; 81003; 84484 ×3; 84439; 83690; 83880; 70450; 71045; 93880; 70551; 96375; 96374; 99285; J8597; J2405; J7030; G0378 ×4; J1650